=== PATIENT | female | born 1940 | race Hispanic/Latino ===

== ENCOUNTER 2016-10-30 21:49 | Emergency (ER) | payer MEDICARE ==
[2016-10-31 01:26] VITALS: BP 152/97; PULSE 76; RESP 18; TEMP 97.8; O2SAT 98; BMI 33.3
--- NOTE | 2016-10-31 01:52 | ED PDOC ---
Arrival/HPI - General Chief Complaint: ENT Problem Time Seen by Provider: 10/31/16 01:40 Historian: Patient - History of Present Illness Narrative History of Present Illness (Text): 10/31/16 01:52 Bhumi Rivas is a 75 year old female, with a history of hypertension, anemia , arthritis, and CAD with stents, presents to the emergency department complaining of swelling and pain to nose. Patient rolled out of bed at sleep and landed on her nose. Reports that symptoms are improving and currently reports of mild headache. Denies fever, chills, dizziness, weakness/numbness to extremity or any other complaints at this time. Time/Duration: Prior to Arrival Symptom Onset: Sudden Symptom Course: Unchanged Severity Level: Mild Activities at Onset: Sleeping Context: Home Past Medical History - Provider Review Nursing Documentation Reviewed: Yes - Infectious Disease Hx of Infectious Diseases: None - Tetanus Immunization Tetanus Immunization: Unknown - Reproductive Menopause: Yes - Cardiac Hx Hypertension: Yes Hx Pacemaker: No Other/Comment: 1 stent 20yrs ago - Pulmonary Hx Emphysema: Yes Other/Comment: smoker - Neurological Hx Neurological Disorder: No Hx Dementia: (forgetful) Hx Paralysis: No - HEENT Hx Cataracts: Yes - Renal Hx Renal Disorder: No - Endocrine/Metabolic Hx Endocrine Disorders: No - Hematological/Oncological Hx Anemia: Yes Hx Blood Transfusions: No Hx Blood Transfusion Reaction: No - Integumentary Hx Dermatological Disorder: No - Musculoskeletal/Rheumatological Hx Arthritis: Yes Hx Back Pain: Yes - Gastrointestinal Hx Gastrointestinal Disorders: Yes (COLITIS,GASTROENTERITIS) Hx Colitis: Yes - Genitourinary/Gynecological Hx Genitourinary Disorders: No Hx Urinary Tract Infection: Yes - Psychiatric Hx Psychophysiologic Disorder: No Hx Emotional Abuse: No Hx Physical Abuse: No Hx Substance Use: No - Past Surgical History Past Surgical History: No Previous - Surgical History Hx Coronary Stent: Yes (20yrs x1) Other/Comment: COLON RESECTION 1 foot - Anesthesia Hx Anesthesia: Yes Hx Anesthesia Reactions: No Hx Malignant Hyperthermia: No - Suicidal Assessment Feels Threatened In Home Enviroment: No Family/Social History - Physician Review Nursing Documentation Reviewed: Yes Family/Social History: No Known Family HX Smoking Status: Former Smoker Hx Alcohol Use: No Hx Substance Use: No Hx Substance Use Treatment: No Allergies/Home Meds Allergies/Adverse Reactions: Allergies No Known Allergies Allergy (Verified 10/31/16 01:20) Home Medications: Home Meds Medication Instructions Recorded Confirmed Atorvastatin Calcium [Lipitor] 20 mg PO DAILY 03/11/13 02/15/15 Carvedilol [Coreg] 3.125 mg PO BID 02/15/15 02/15/15 Furosemide [Lasix] 20 mg PO DAILY 02/15/15 02/15/15 Zolpidem Tartrate [Ambien] 5 mg PO HS PRN 02/15/15 02/15/15 Review of Systems - Physician Review All systems were reviewed & negative as marked: Yes - Review of Systems Constitutional: Normal. absent: Fatigue, Fevers ENT: Other (nose swelling and pain ) Respiratory: Normal. absent: SOB, Cough Cardiovascular: Normal. absent: Chest Pain Gastrointestinal: Normal. absent: Abdominal Pain, Diarrhea, Nausea, Vomiting Neurological: Headache. absent: Dizziness Psychiatric: Normal Physical Exam Vital Signs Reviewed: Yes Vital Signs Temp Pulse Resp BP Pulse Ox 10/31/16 01:25 97.8 F 76 18 152/97 H 98 Temperature: Afebrile Blood Pressure: Normal Pulse: Regular Respiratory Rate: Normal Appearance: Positive for: Well-Appearing, Non-Toxic, Comfortable Pain Distress: None Mental Status: Positive for: Alert and Oriented X 3 - Systems Exam Head: Present: Normocephalic Pupils: Present: PERRL Extroacular Muscles: Present: EOMI Conjunctiva: Present: Normal Mouth: Present: Moist Mucous Membranes Nose (External): Present: Other (superficial ecchymotic swelling to nasal bridge ). No: Abrasion, Laceration Nose (Internal): Present: Normal Inspection. No: No Active Bleeding, Septal Deviation, Septal Hematoma Respiratory/Chest: Present: Clear to Auscultation, Good Air Exchange. No: Respiratory Distress, Accessory Muscle Use Cardiovascular: Present: Regular Rate and Rhythm, Normal S1, S2. No: Murmurs Neurological: Present: GCS=15, CN II-XII Intact, Speech Normal Skin: Present: Warm, Dry, Normal Color. No: Rashes Psychiatric: Present: Alert, Oriented x 3, Normal Insight, Normal Concentration Medical Decision Making ED Course and Treatment: 10/31/16 02:13 Impression: A 75 year old female who presents to the emergency department complaining of swelling and pain to nose. Plan: -- X-ray -- Reassess and disposition Progress Notes: 10/31/16 05:28 X-ray reviewed by me, negative for any acute fracture. Patient states she is feeling much better and wants to be discharge home. Patient is stable for discharge. Advised to present back to emergency department for worsening symptoms. Advised to follow up with PMD within few days. - Lab Interpretations I have reviewed the lab results: Yes - RAD Interpretation Radiology Orders: 10/31/16 01:49 NASAL BONES [RAD] Stat Variety Performer: ED Physician - EKG Interpretation Interpreted by ED Physician: Yes Type: 12 lead EKG - Scribe Statement The provider has reviewed the documentation as recorded by the Scribe Urvashi Evans Provider Attestation: All medical record entries made by the Stefanoibe were at my direction and personally dictated by me. I have reviewed the chart and agree that the record accurately reflects my personal performance of the history, physical exam, medical decision making, and the department course for this patient. I have also personally directed, reviewed, and agree with the discharge instructions and disposition. Disposition/Present on Arrival - Present on Arrival Any Indicators Present on Arrival: No History of DVT/PE: No History of Uncontrolled Diabetes: No Urinary Catheter: No History of Decub. Ulcer: No History Surgical Site Infection Following: None - Disposition Have Diagnosis and Disposition been Completed?: Yes Diagnosis: Nasal contusion Disposition: HOME/ ROUTINE Disposition Time: 05:18 Patient Plan: Discharge Patient Problems: Current Active Problems Problem Status Diagnosed Nasal contusion Acute Condition: GOOD Discharge Instructions (ExitCare): Contusion in Adults (ED), Nasal Contusion ( ED) Additional Instructions: follow up with your doctor this week
--- NOTE | 2016-10-31 13:34 | RAD ---
PROCEDURE: Nasal bones HISTORY: injury COMPARISON: None TECHNIQUE: Standard protocol for this study/examination. FINDINGS: No evidence of displaced fracture or soft tissue abnormality. IMPRESSION: No acute findings related to/accounting for the clinical presentation.
== END 2016-10-31 05:20 | disposition home or self-care (01) ==
LOC: ED 21:49
DX: S00.33XA Contusion of nose, initial encounter (principal); W06.XXXA Fall from bed, initial encounter; Y93.84 Activity, sleeping; Y92.009 Unspecified place in unspecified non-institutional (private) residence as the place of occurrence of the external cause; I10 Essential (primary) hypertension; Z87.891 Personal history of nicotine dependence

== ENCOUNTER 2018-05-31 22:08 | Observation (INO) | payer MEDICARE, OTHER ==
[2018-05-31 22:17] VITALS: BMI 31.6
[2018-05-31 23:05] LABS: GRAN # 2.04 (1.4-6.5); GRAN % 52.4 % (50.0-68.0); HEMOGLOBIN 10.9 g/dL (12.0-16.0); LYMPH # 1.6 (1.2-3.4); LYMPH % 41.9 % (22.0-35.0); MEAN CELL VOLUME 99.2 fl (80.0-105.0); MEAN CORPUSCULAR HEMOGLOBIN 30.4 pg (25.0-35.0); MEAN CORPUSCULAR HGB CONC 30.7 g/dl (31.0-37.0); MEAN PLATELET VOLUME 11.6 fl (7.0-11.0); MONO # 0.2 (0.1-0.6); MONO % 5.7 % (1.0-6.0); RBC 3.58 10^6/uL (3.5-6.1); RED CELL DISTRIBUTION WIDTH 13.8 % (11.5-14.5); WHITE BLOOD COUNT 3.9 10^3/ul (4.5-11.0)
[2018-05-31 23:34] LABS: INR 1.71; PARTIAL THROMBOPLASTIN TIME 32.7 Seconds (25.1-36.5); PROTHROMBIN TIME 19.7 SECONDS (9.4-12.5)
[2018-05-31 23:35] LABS: ALB/GLOB RATIO 1.1 (1.1-1.8); ALBUMIN 4.2 g/dL (3.0-4.8); ALT/SGPT 27 U/L (7-56); AST/SGOT 40 U/L (14-36); BLOOD UREA NITROGEN 27 mg/dL (7-21); GFR NON-AFRICAN AMERICAN 43
[2018-05-31 23:47] LABS: B-TYPE NATRIURETIC PEPTIDE 663 pg/mL (0-450); TROPONIN I < 0.01 ng/mL
[2018-06-01 00:41] LABS: URINE BILIRUBIN NEGATIVE (NEGATIVE); URINE BLOOD NEGATIVE (NEGATIVE); URINE GLUCOSE (UA) NEGATIVE (NEGATIVE); URINE LEUKOCYTE ESTERASE MODERATE Leu/uL (NEGATIVE); URINE PROTEIN TRACE mg/dL (<30 mg/dL); URINE UROBILINOGEN 0.2 E.U./dL (<1 E.U./dL)
[2018-06-01 00:53] LABS: URINE APPEARANCE SL CLOUDY (CLEAR); URINE COLOR YELLOW (YELLOW)
[2018-06-01 01:09] LABS: URINE RBC 0 - 2 /hpf (0-2)
[2018-06-01 01:11] LABS: URINE BACTERIA MANY (NEG)
[2018-06-01] MEDS ORDERED: cefTRIAXone 1 gm 1 GM/100 ML BAG IVPB STA (01:11)
--- NOTE | 2018-06-01 01:20 | ED PDOC ---
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 States that she had recent cardiac cath on Sunday which was "good," she was told she had some minor plaque in 1 artery otherwise all the others were "good." She states that the pain started at 9pm while watching TV, lasted for nearly an hour, reports taking nitroglycerin with no immediate improvement, however upon arrival to the ER her pain has significantly improved. Reports no pain now, adds that she took her daily dose of baby ASA. Otherwise: (-) radiation to the back, (-) diaphoresis, (-) dyspnea, (-) pleuritic component, (-) ripping or tearing quality, (-) positional component, (-) exertional component, (-) dizziness, (-) syncope, (-) nausea, (-) vomiting, (-) abdominal pain, (-) calf swelling/pain, (-) neuro defi cits, (-) recent travel/surgery/hospitalization. PMD / cardio / pulm all in [place] <Candida Hartley PA-C - Last Filed: 06/01/18 01:49> <Gail Fish - Last Filed: 06/02/18 13:42> - General Chief Complaint: Chest Pain Time Seen by Provider: 05/31/18 22:32 Past Medical History - Infectious Disease Hx of Infectious Diseases: None - Tetanus Immunization Tetanus Immunization: Unknown - Cardiac Hx Hypertension: Yes Hx Pacemaker: No Other/Comment: 1 stent 20yrs ago - Pulmonary Hx Chronic Obstructive Pulmonary Disease (COPD): Yes Hx Emphysema: Yes - Neurological Hx Neurological Disorder: No Hx Dementia: (forgetful) Hx Paralysis: No - HEENT Hx Cataracts: Yes - Renal Hx Renal Disorder: No - Endocrine/Metabolic Hx Endocrine Disorders: No - Hematological/Oncological Hx Anemia: Yes Hx Blood Transfusions: No Hx Blood Transfusion Reaction: No - Integumentary Hx Dermatological Disorder: No - Musculoskeletal/Rheumatological Hx Arthritis: Yes Hx Back Pain: Yes - Gastrointestinal Hx Gastrointestinal Disorders: Yes (COLITIS,GASTROENTERITIS) Hx Colitis: Yes - Genitourinary/Gynecological Hx Genitourinary Disorders: No Hx Urinary Tract Infection: Yes - Psychiatric Hx Psychophysiologic Disorder: No Hx Emotional Abuse: No Hx Physical Abuse: No Hx Substance Use: No - Past Surgical History Past Surgical History: No Previous - Surgical History Hx Coronary Stent: Yes (20yrs x1) Other/Comment: COLON RESECTION 1 foot - Anesthesia Hx Anesthesia: Yes Hx Anesthesia Reactions: No Hx Malignant Hyperthermia: No - Suicidal Assessment Feels Threatened In Home Enviroment: No <Candida Hartley PA-C - Last Filed: 06/01/18 01:49> Family/Social History Family/Social History: Unknown Family HX Smoking Status: Former Smoker Hx Alcohol Use: Yes Frequency of alcohol use: Socially Hx Substance Use: No Hx Substance Use Treatment: No <Candida Hartley PA-C - Last Filed: 06/01/18 01:49> Allergies/Home Meds <Candida Hartley PA-C - Last Filed: 06/01/18 01:49> <Gail Fish - Last Filed: 06/02/18 13:42> Allergies/Adverse Reactions: Allergies No Known Allergies Allergy (Verified 05/31/18 22:17) Home Medications: Home Meds Medication Instructions Recorded Confirmed RX: Atorvastatin Calcium [Lipitor] 20 mg PO DAILY 03/11/13 06/01/18 RX: Carvedilol [Coreg] 6.25 mg PO BID 02/15/15 06/02/18 RX: Furosemide [Lasix] 20 mg PO DAILY 02/15/15 06/01/18 RX: Albuterol Sulfate [Ventolin 1 puff IH PRN PRN MDD 5 06/01/18 06/01/18 Hfa] RX: Glycopyrrolate/Formoterol Fum 1 puff IH BID 06/01/18 06/01/18 [Bevespi Aerosphere Inhaler] RX: Omeprazole Magnesium [Prilosec 20 mg PO BID 06/01/18 06/01/18 Otc] RX: Ranolazine [Ranexa] 500 mg PO DAILY 06/01/18 06/01/18 Review of Systems - Review of Systems Constitutional: absent: Fatigue, Fevers Respiratory: absent: SOB, Cough, Sputum Cardiovascular: Chest Pain. absent: Palpitations Gastrointestinal: absent: Abdominal Pain, Diarrhea, Vomiting Genitourinary Female: absent: Dysuria, Frequency, Hematuria Musculoskeletal: absent: Arthralgias, Back Pain, Neck Pain Skin: absent: Rash, Pruritis, Skin Lesions Neurological: absent: Headache, Dizziness <Candida Hartley PA-C - Last Filed: 06/01/18 01:49> Physical Exam Vital Signs Temp Pulse Resp BP Pulse Ox 06/01/18 00:35 71 18 154/68 H 98 05/31/18 22:53 66 18 137/81 96 05/31/18 22:21 97.8 F 65 20 143/67 96 Temperature: Afebrile Blood Pressure: Normal Pulse: Regular Respiratory Rate: Normal Appearance: Positive for: Well-Appearing, Non-Toxic, Comfortable (patient is smiling and in good spirits) Pain Distress: None Mental Status: Positive for: Alert and Oriented X 3 - Systems Exam Head: Present: Atraumatic, Normocephalic Pupils: Present: PERRL Extroacular Muscles: Present: EOMI Conjunctiva: Present: Normal Mouth: Present: Moist Mucous Membranes Neck: Present: Normal Range of Motion Respiratory/Chest: Present: Clear to Auscultation, Good Air Exchange. No: Respiratory Distress, Accessory Muscle Use Cardiovascular: Present: Regular Rate and Rhythm, Normal S1, S2. No: Murmurs Abdomen: No: Tenderness, Distention, Peritoneal Signs Back: Present: Normal Inspection Upper Extremity: Present: Normal Inspection. No: Cyanosis, Edema Lower Extremity: Present: Normal Inspection. No: Edema Neurological: Present: GCS=15, CN II-XII Intact, Speech Normal, Motor Func Grossly Intact, Normal Sensory Function Skin: Present: Warm, Dry, Normal Color. No: Rashes Psychiatric: Present: Alert, Oriented x 3, Normal Insight, Normal Concentration <Candida Hartley PA-C - Last Filed: 06/01/18 01:49> Vital Signs Temp Pulse Resp BP Pulse Ox 06/01/18 03:07 97.9 F 63 18 152/70 H 99 06/01/18 02:02 63 18 159/72 H 96 06/01/18 00:35 71 18 154/68 H 98 05/31/18 22:53 66 18 137/81 96 05/31/18 22:21 97.8 F 65 20 143/67 96 <Gail Fish - Last Filed: 06/02/18 13:42> Medical Decision Making ED Course and Treatment: 06/01/18 01:22 Plan : - cuff setter overlock - labs - IV - CXR - EKG - Coags Labs reviewed : trop (-), BNP 600s, d-dimer (-), UA + UTI. CXR : NAD, as read by PA EKG : SR at 72 bpm with PACs, LAD, otherwise no acute ST changes. Rocephin 1 g IV for UTI ordered. On re-evaluation, patient reports improvement of symptoms, denies any CP or SOB. On exam, patient remains AAOx3, in no acute distress. Diagnostic results d/w the patient in great detail. Diagnosis of chest pain, r/o ACS, UTI d/w the patient. Based on history, exam and diagnostic results, plan will be for observation to remote tele. Case d/w [facility] and with Dr. Cazares, agree with plan for remote tele obs for further observation, and repeat troponin. Patient states she fully agrees with and understands discharge instructions. States that she agrees with the plan and disposition. Verbalized and repeated discharge instructions and plan. I have given the patient opportunity to ask any additional questions. - Lab Interpretations Lab Results: 05/31/18 22:04 05/31/18 23:15 Lab Results 06/01/18 00:32: Urine Color Yellow, Urine Appearance Sl cloudy, Urine pH 6.0, Ur Specific [place] 1.025, Urine Protein Trace H, Urine Glucose (UA) Negative, Urine Ketones Trace H, Urine Blood Negative, Urine Nitrate Positive H, Urine Bilirubin Negative, Urine Urobilinogen 0.2, Ur Leukocyte Esterase Moderate H, Urine RBC 0 - 2, Urine WBC 10 - 15, Ur Epithelial Cells 1 - 3, Urine Bacteria Many 05/31/18 23:15: D-Dimer, Quantitative < 200 05/31/18 23:15: Sodium 139, Potassium 4.1, Chloride 102, Carbon Dioxide 29, An ion Gap 12, BUN 27 H, Creatinine 1.2, Est GFR ( Amer) 52, Est GFR (Non-Af Amer) 43, Random Glucose 111 H, Calcium 9.0, Magnesium 1.5 L, Total Bilirubin 0.5, AST 40 H D, ALT 27, Alkaline Phosphatase 94, Lactate Dehydrogenase 513, Total Creatine Kinase 49, Troponin I < 0.01, NT-Pro-B Natriuret Pep 663 H, Total Protein 7.8, Albumin 4.2, Globulin 3.6, Albumin/Globulin Ratio 1.1 05/31/18 22:04: PT 19.7 H, INR 1.71, APTT 32.7 05/31/18 22:04: WBC 3.9 L, RBC 3.58, Hgb 10.9 L, Hct 35.5 L, MCV 99.2, MCH 30.4, MCHC 30.7 L, RDW 13.8, Plt Count 151, MPV 11.6 H, Gran % 52.4, Lymph % (Auto) 41.9 H, [place] % (Auto) 5.7, Eos % (Auto) 0.0 L, Baso % (Auto) 0.0, Gran # 2.04, Lymph # (Auto) 1.6, [place] # (Auto) 0.2, Eos # (Auto) 0.0, Baso # (Auto) 0.00 - RAD Interpretation Radiology Orders: 05/31/18 22:40 CHEST PORTABLE [RAD] Stat - Medication Orders Current Medication Orders: Ceftriaxone Sodium (Rocephin 1 Gram Ivpb) 1 gm in 100 mls @ 200 mls/hr IVPB STAT STA; Protocol Stop: 06/01/18 01:40 <Candida Hartley PA-C - Last Filed: 06/01/18 01:49> - Lab Interpretations Microbiology Results: Microbiology Results 06/01/18 00:32 Urine,Clean Catch Urine Culture - Preliminary Gram Negative Alfredo Lab Results: 05/31/18 22:04 05/31/18 23:15 Lab Results 06/01/18 00:32: Urine Color Yellow, Urine Appearance Sl cloudy, Urine pH 6.0, Ur Specific [place] 1.025, Urine Protein Trace H, Urine Glucose (UA) Negative, Urine Ketones Trace H, Urine Blood Negative, Urine Nitrate Positive H, Urine Bilirubin Negative, Urine Urobilinogen 0.2, Ur Leukocyte Esterase Moderate H, Urine RBC 0 - 2, Urine WBC 10 - 15, Ur Epithelial Cells 1 - 3, Urine Bacteria Many 05/31/18 23:15: D-Dimer, Quantitative < 200 05/31/18 23:15: Sodium 139, Potassium 4.1, Chloride 102, Carbon Dioxide 29, Anion Gap 12, BUN 27 H, Creatinine 1.2, Est GFR ( Amer) 52, Est GFR (Non- Af Amer) 43, Random Glucose 111 H, Calcium 9.0, Magnesium 1.5 L, Total Bilirubin 0.5, AST 40 H D, ALT 27, Alkaline Phosphatase 94, Lactate Dehydrogenase 513, Total Creatine Kinase 49, Troponin I < 0.01, NT-Pro-B Natriuret Pep 663 H, Total Protein 7.8, Albumin 4.2, Globulin 3.6, Albumin/Globulin Ratio 1.1 05/31/18 22:04: PT 19.7 H, INR 1.71, APTT 32.7 05/31/18 22:04: WBC 3.9 L, RBC 3.58, Hgb 10.9 L, Hct 35.5 L, MCV 99.2, MCH 30.4, MCHC 30.7 L, RDW 13.8, Plt Count 151, MPV 11.6 H, Gran % 52.4, Lymph % (Auto) 41.9 H, [place] % (Auto) 5.7, Eos % (Auto) 0.0 L, Baso % (Auto) 0.0, Gran # 2.04, Lymph # (Auto) 1.6, [place] # (Auto) 0.2, Eos # (Auto) 0.0, Baso # (Auto) 0.00 - RAD Interpretation Radiology Orders: 05/31/18 22:40 CHEST PORTABLE [RAD] Stat - Medication Orders Current Medication Orders: Albuterol/Ipratropium (Duoneb 3 Mg/0.5 Mg (3 Ml) Ud) 3 ml IH Q6H PRN PRN Reason: Shortness of Breath Apixaban (Eliquis) 5 mg PO BID [facility]; Protocol Last Admin: 06/02/18 09:42 Dose: 5 mg Aspirin (Aspirin Chewable) 81 mg PO DAILY [facility] Last Admin: 06/02/18 09:41 Dose: 81 mg Atorvastatin Calcium (Lipitor) 20 mg PO HS [facility] Last Admin: 06/01/18 21:49 Dose: 20 mg Carvedilol (Coreg) 6.25 mg PO BID [facility] Last Admin: 10/21/18 09:41 Dose: 6.25 mg MAR Pulse and Blood Pressure Document 06/02/18 09:41 RT (Rec: 06/02/18 09:42 RT [id number]) Pulse Pulse Rate (60-90) 77 Blood Pressure Blood Pressure (100/60-150/90) 118/77 Famotidine (Pepcid) 20 mg PO 1000,2200 [facility] Last Admin: 06/02/18 09:41 Dose: 20 mg Furosemide (Lasix) 20 mg PO DAILY [facility] Last Admin: 06/02/18 09:39 Dose: 20 mg MAR Blood Pressure Document 06/02/18 09:39 RT (Rec: 06/02/18 09:40 RT [id number]) Blood Pressure Blood Pressure (100/60-150/90) 118/77 Ceftriaxone Sodium (Rocephin 1 Gram Ivpb) 1 gm in 100 mls @ 100 mls/hr IVPB DAILY [facility]; Protocol Last Admin: 06/02/18 09:39 Dose: 100 mls/hr eMAR Start Stop Document 06/02/18 09:39 RT (Rec: 06/02/18 09:39 RT [id number]) Intravenous Solution Start Date 06/02/18 Start Time 09:39 End Date 06/02/18 End time 10:40 Total Infusion Time 61 Losartan Potassium (Cozaar) 25 mg PO DAILY [facility] Last Admin: 06/02/18 09:41 Dose: 25 mg MAR Pulse and Blood Pressure Document 06/02/18 09:41 RT (Rec: 06/02/18 09:41 RT [id number]) Pulse Pulse Rate (60-90) 76 Blood Pressure Blood Pressure (100/60-150/90) 118/77 Ranolazine [Ranexa] (500 Mg (Home Med)) 500 mg PO DAILY [facility] Last Admin: 06/02/18 09:42 Dose: Not Given Non-Admin Reason: not id'd Discontinued Medications Apixaban (Eliquis) 5 mg PO DAILY [facility]; Protocol Ceftriaxone Sodium (Rocephin 1 Gram Ivpb) 1 gm in 100 mls @ 200 mls/hr IVPB STAT STA; Protocol Stop: 06/01/18 01:40 Last Admin: 06/01/18 02:15 Dose: 200 mls/hr eMAR Start Stop Document 06/01/18 02:15 RG (Rec: 06/01/18 02:52 RG [id number]) Intravenous Solution Start Date 06/01/18 Start Time 02:15 Magnesium Sulfate/Dextrose (Magnesium Sulfate 1 Gm/100 Ml D5w) 1 gm in 100 mls @ 100 mls/hr IVPB ONCE ONE Stop: 06/01/18 02:57 Last Admin: 06/01/18 02:52 Dose: 100 mls/hr eMAR Start Stop Document 06/01/18 02:52 RG (Rec: 06/01/18 02:52 RG [id number]) Intravenous Solution Start Date 06/01/18 Start Time 02:52 <Gail Fish - Last Filed: 06/02/18 13:42> - PA / LEGISLATIVE ASSISTANT / Resident Statement ERVIN has reviewed & agrees with the documentation as recorded. <Candida Hartley PA-C - Last Filed: 06/01/18 01:49> - PA / LEGISLATIVE ASSISTANT / Resident Statement ERVIN has reviewed & agrees with the documentation as recorded. <Gail Fish - Last Filed: 06/02/18 13:42> Disposition/Present on Arrival - Present on Arrival Any Indicators Present on Arrival: No History of DVT/PE: No History of Uncontrolled Diabetes: No Urinary Catheter: No History of Decub. Ulcer: No History Surgical Site Infection Following: None - Disposition Have Diagnosis and Disposition been Completed?: Yes Disposition Time: 01:30 Patient Plan: Observation (to remote tele) <Candida Hartley PA-C - Last Filed: 06/01/18 01:49> <Gail Fish - Last Filed: 06/02/18 13:42> - Disposition Diagnosis: Chest pain, UTI (urinary tract infection) Disposition: HOSPITALIZED Patient Problems: Current Active Problems Problem Status Onset Chest pain Acute UTI (urinary tract infection) Acute Condition: STABLE
--- NOTE | 2018-06-01 01:25 | CP.PCM.HP ---
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 Patient reports she was resting comfortably and started to experience 8/10 chest pain on her right side under her breast. She reported the pain radiated to her left side but had no radiation down her LUE or up her jaw. Patient reports she took Nitro which did not help and thus decided to call EMS. Patient had a similar episode of such pain 22 years ago when she was brought in and had a cath and stent placed which is why she came to the ER. She stated she ate dinner around 5pm on the night of admission and began to experience chest pain a couple hours after. She also experienced some associated nausea with no emesis and felt like going to the bathroom. Patient recently had an angio on SundayMay 28 which was unremarkable. She also had an Echo recently however she does not recall the results. Patient reports she can only walk 1/2 block due to arthritis and that she ambulates with a cane. She lives on the second floor of her building and is usually short of breath after climbing up two flights of stairs. She sleeps with 1 pillow at night and admits to some mild orthopnea. PMHx: CAD s/p 1 stent 20 years ago, DVT LLE and b/l PE on eliquis 5mg bid, HTN, HLD, emphysema, anemia, diverticulitis, arthritis PSurgHx: colectomy, R shoulder benign tumor removal, tonsillectomy as a child Nuclear Stress test 2016: LV mildly dilated; EF 68%; unremarkable study Meds: pls see chart ALL: NKDA SocHx: prior tobacco use quit 22 years ago- used to smoke 2.5packs for 40 years; ocassionally drinks wine; denies drug use FamHx: mother 44yo 2/2 brain aneurysm; father 66yo [place]; grandmother rectal CA; uncle stomach ca PMD: Dr. Dasilva Pipe Buffer: Dr. Dasilva Pharmacy: [facility] Insurance: [employer] ROS: admits: R sided chest pain, dyspnea at rest and on exertion, nausea, arthritic pain in her legs b/l, chronic swelling in her b/l LE [much improved today than baseline] denies: fever, chills, headache, dizziness, palpitations, cough, abd pain, vomiting, bowel/bladder complaints Present on Admission - Present on Admission Any Indicators Present on Admission: Yes History of DVT/PE: Yes History of Uncontrolled Diabetes: No Urinary Catheter: No Decubitus Ulcer Present: No Review of Systems - Review of Systems All systems: reviewed and no additional remarkable complaints except Review of Systems: as per HPI Past Patient History - Infectious Disease Hx of Infectious Diseases: None - Tetanus Immunizations Tetanus Immunization: Unknown - Past Social History Smoking Status: Former Smoker - CARDIAC Hx Hypertension: Yes Hx Pacemaker: No Other/Comment: 1 stent 20yrs ago - PULMONARY Hx Chronic Obstructive Pulmonary Disease (COPD): Yes Hx Emphysema: Yes - NEUROLOGICAL Hx Neurological Disorder: No Hx Dementia: (forgetful) Hx Paralysis: No - HEENT Hx Cataracts: Yes - RENAL Hx Chronic Kidney Disease: No - ENDOCRINE/METABOLIC Hx Endocrine Disorders: No - HEMATOLOGICAL/ONCOLOGICAL Hx Anemia: Yes Hx Blood Transfusions: No Hx Blood Transfusion Reaction: No - INTEGUMENTARY Hx Dermatological Problems: No - MUSCULOSKELETAL/RHEUMATOLOGICAL Hx Arthritis: Yes Hx Back Pain: Yes - GASTROINTESTINAL Hx Gastrointestinal Disorders: Yes (COLITIS,GASTROENTERITIS) Hx Colitis: Yes - GENITOURINARY/GYNECOLOGICAL Hx Genitourinary Disorders: No Hx Urinary Tract Infection: Yes - PSYCHIATRIC Hx Psychophysiologic Disorder: No Hx Emotional Abuse: No Hx Physical Abuse: No Hx Substance Use: No - SURGICAL HISTORY Hx Coronary Stent: Yes (20yrs x1) Other/Comment: COLON RESECTION 1 foot - ANESTHESIA Hx Anesthesia: Yes Hx Anesthesia Reactions: No Hx Malignant Hyperthermia: No Meds Allergies/Adverse Reactions: Allergies Allergy/AdvReac Type Severity Reaction Status Date / Time No Known Allergies Allergy Verified 05/31/18 22:17 Physical Exam - Constitutional Appears: Non-toxic, No Acute Distress - Head Exam Head Exam: ATRAUMATIC, NORMAL INSPECTION, NORMOCEPHALIC - Eye Exam Eye Exam: EOMI, Normal appearance, PERRL. absent: Conjunctival injection, Scleral icterus Pupil Exam: NORMAL ACCOMODATION - ENT Exam ENT Exam: Mucous Membranes Moist - Neck Exam Neck exam: Positive for: Normal Inspection. Negative for: Lymphadenopathy - Respiratory Exam Respiratory Exam: Clear to Auscultation Bilateral, NORMAL BREATHING PATTERN. absent: Accessory Muscle Use, Rales, Rhonchi, Wheezes, Respiratory Distress - Cardiovascular Exam Cardiovascular Exam: +S1, +S2. absent: Systolic Murmur - GI/Abdominal Exam GI & Abdominal Exam: Normal Bowel Sounds, Soft. absent: Distended, Firm, Guarding, Rigid, Tenderness - Rectal Exam Rectal Exam: Deferred - Extremities Exam Extremities exam: Positive for: normal capillary refill, pedal edema (nonpitting b/l ankles), pedal pulses present - Neurological Exam Neurological exam: Alert, CN II-XII Intact, Oriented x3 - Psychiatric Exam Psychiatric exam: Normal Affect, Normal Mood - Skin Skin Exam: Dry, Intact, Normal Color, Warm Results - Vital Signs Recent Vital Signs: Last Vital Signs Temp 97.8 F 05/31/18 22:21 Pulse 71 06/01/18 00:35 Resp 18 06/01/18 00:35 BP 154/68 H 06/01/18 00:35 Pulse Ox 98 06/01/18 00:35 - Labs Result Diagrams: 05/31/18 22:04 05/31/18 23:15 Labs: Laboratory Results - last 24 hr 05/31/18 05/31/18 05/31/18 22:04 22:04 23:15 WBC 3.9 L RBC 3.58 Hgb 10.9 L Hct 35.5 L MCV 99.2 MCH 30.4 MCHC 30.7 L RDW 13.8 Plt Count 151 MPV 11.6 H Gran % 52.4 Lymph % (Auto) 41.9 H [place] % (Auto) 5.7 Eos % (Auto) 0.0 L Baso % (Auto) 0.0 Gran # 2.04 Lymph # (Auto) 1.6 [place] # (Auto) 0.2 Eos # (Auto) 0.0 Baso # (Auto) 0.00 PT 19.7 H INR 1.71 APTT 32.7 D-Dimer, Quantitative Sodium 139 Potassium 4.1 Chloride 102 Carbon Dioxide 29 Anion Gap 12 BUN 27 H Creatinine 1.2 Est GFR ( Amer) 52 Est GFR (Non-Af Amer) 43 Random Glucose 111 H Calcium 9.0 Magnesium 1.5 L Total Bilirubin 0.5 AST 40 H D ALT 27 Alkaline Phosphatase 94 Lactate Dehydrogenase 513 Total Creatine Kinase 49 Troponin I < 0.01 NT-Pro-B Natriuret Pep 663 H Total Protein 7.8 Albumin 4.2 Globulin 3.6 Albumin/Globulin Ratio 1.1 Urine Color Urine Appearance Urine pH Ur Specific [place] Urine Protein Urine Glucose (UA) Urine Ketones Urine Blood Urine Nitrate Urine Bilirubin Urine Urobilinogen Ur Leukocyte Esterase Urine RBC Urine WBC Ur Epithelial Cells Urine Bacteria 05/31/18 06/01/18 23:15 00:32 WBC RBC Hgb Hct MCV MCH MCHC RDW Plt Count MPV Gran % Lymph % (Auto) [place] % (Auto) Eos % (Auto) Baso % (Auto) Gran # Lymph # (Auto) [place] # (Auto) Eos # (Auto) Baso # (Auto) PT INR APTT D-Dimer, Quantitative < 200 Sodium Potassium Chloride Carbon Dioxide Anion Gap BUN Creatinine Est GFR ( Amer) Est GFR (Non-Af Amer) Random Glucose Calcium Magnesium Total Bilirubin AST ALT Alkaline Phosphatase Lactate Dehydrogenase Total Creatine Kinase Troponin I NT-Pro-B Natriuret Pep Total Protein Albumin Globulin Albumin/Globulin Ratio Urine Color Yellow Urine Appearance Sl cloudy Urine pH 6.0 Ur Specific [place] 1.025 Urine Protein Trace H Urine Glucose (UA) Negative Urine Ketones Trace H Urine Blood Negative Urine Nitrate Positive H Urine Bilirubin Negative Urine Urobilinogen 0.2 Ur Leukocyte Esterase Moderate H Urine RBC 0 - 2 Urine WBC 10 - 15 Ur Epithelial Cells 1 - 3 Urine Bacteria Many Assessment & Plan - Assessment and Plan (Free Text) Assessment: 77yo female PMHx CAD s/p 1 stent 22 years ago, DVT LLE and b/l PE on eliquis 5mg bid, HTN, HLD, emphysema, anemia, diverticulitis, arthritis presents to [facility] with complaints of right sided chest pain and associated SOB that started on night of admission. Patient admitted to remote TELE-Obs for further management Plan: Chest pain r/o ACS -troponin negative x 1 f/u troponin x 2 -EKG on admission had no ST elevations f/u EKG in AM -BNP 663 on admission -f/u Echo -f/u FLP, TSH, free T4, HgbA1c -ASA 81mg qd -continue home Lipitor 20mg po hs -continue home Coreg 6.25mg po bid -continue home Ranexa 500mg po qd -continue home Lasix 20mg po qd -Cardio Consult Dr. Bragg Hx of CAD s/p 1 stent 22 years ago -continue home medications Hx of DVT LLE and b/l PE -continue home Eliquis 5mg bid Hx of HTN -continue home Coreg and Losartan 25mg po qd Hx of HLD -continue home Lipitor Hx of Emphysema -no acute issues -Duoneb q6 prn Hx of anemia -no signs of acute bleed -f/u iron studies Hx of diverticulitis -no acute issues Hx of arthritis -no acute issues Diet: HHD with LONG TERM DVT ppx: continue home Eliquis 5mg bid GI ppx: Pepcid 20mg po bid Discussed with Dr. Debora Morales PGY3 <Keri Cazares - Last Filed: 06/01/18 03:01> Results - Vital Signs Recent Vital Signs: Last Vital Signs Temp 97.8 F 05/31/18 22:21 Pulse 63 06/01/18 02:02 Resp 18 06/01/18 02:02 BP 159/72 H 06/01/18 02:02 Pulse Ox 96 06/01/18 02:02 - Labs Result Diagrams: 05/31/18 22:04 05/31/18 23:15 Labs: Laboratory Results - last 24 hr 05/31/18 05/31/18 05/31/18 22:04 22:04 23:15 WBC 3.9 L RBC 3.58 Hgb 10.9 L Hct 35.5 L MCV 99.2 MCH 30.4 MCHC 30.7 L RDW 13.8 Plt Count 151 MPV 11.6 H Gran % 52.4 Lymph % (Auto) 41.9 H [place] % (Auto) 5.7 Eos % (Auto) 0.0 L Baso % (Auto) 0.0 Gran # 2.04 Lymph # (Auto) 1.6 [place] # (Auto) 0.2 Eos # (Auto) 0.0 Baso # (Auto) 0.00 PT 19.7 H INR 1.71 APTT 32.7 D-Dimer, Quantitative Sodium 139 Potassium 4.1 Chloride 102 Carbon Dioxide 29 Anion Gap 12 BUN 27 H Creatinine 1.2 Est GFR ( Amer) 52 Est GFR (Non-Af Amer) 43 Random Glucose 111 H Calcium 9.0 Magnesium 1.5 L Total Bilirubin 0.5 AST 40 H D ALT 27 Alkaline Phosphatase 94 Lactate Dehydrogenase 513 Total Creatine Kinase 49 Troponin I < 0.01 NT-Pro-B Natriuret Pep 663 H Total Protein 7.8 Albumin 4.2 Globulin 3.6 Albumin/Globulin Ratio 1.1 Urine Color Urine Appearance Urine pH Ur Specific [place] Urine Protein Urine Glucose (UA) Urine Ketones Urine Blood Urine Nitrate Urine Bilirubin Urine Urobilinogen Ur Leukocyte Esterase Urine RBC Urine WBC Ur Epithelial Cells Urine Bacteria 05/31/18 06/01/18 23:15 00:32 WBC RBC Hgb Hct MCV MCH MCHC RDW Plt Count MPV Gran % Lymph % (Auto) [place] % (Auto) Eos % (Auto) Baso % (Auto) Gran # Lymph # (Auto) [place] # (Auto) Eos # (Auto) Baso # (Auto) PT INR APTT D-Dimer, Quantitative < 200 Sodium Potassium Chloride Carbon Dioxide Anion Gap BUN Creatinine Est GFR ( Amer) Est GFR (Non-Af Amer) Random Glucose Calcium Magnesium Total Bilirubin AST ALT Alkaline Phosphatase Lactate Dehydrogenase Total Creatine Kinase Troponin I NT-Pro-B Natriuret Pep Total Protein Albumin Globulin Albumin/Globulin Ratio Urine Color Yellow Urine Appearance Sl cloudy Urine pH 6.0 Ur Specific [place] 1.025 Urine Protein Trace H Urine Glucose (UA) Negative Urine Ketones Trace H Urine Blood Negative Urine Nitrate Positive H Urine Bilirubin Negative Urine Urobilinogen 0.2 Ur Leukocyte Esterase Moderate H Urine RBC 0 - 2 Urine WBC 10 - 15 Ur Epithelial Cells 1 - 3 Urine Bacteria Many Attending/Attestation - Attestation I have personally seen and examined this patient.: Yes I have fully participated in the care of the patient.: Yes I have reviewed all pertinent clinical information: Yes Notes (Text): 06/01/18 03:00 Patient was seen when she was in the bed #4 in the ER. Medical record was reviewed. Agree with history , physical examination, assessment and plan.
[2018-06-01] MEDS ORDERED: Magnesium Sulfate 1 gm in D5W 1 GM/100 ML BAG IVPB ONE (01:58)
[2018-06-01] MEDS ORDERED: Albuterol-Ipratrop 3 mg / 0.5 (3 ml) UD IH PRN (02:29)
[2018-06-01 08:03] LABS: GRAN # 1.18 (1.4-6.5); GRAN % 38.8 % (50.0-68.0); HEMOGLOBIN 9.9 g/dL (12.0-16.0); LYMPH # 1.6 (1.2-3.4); LYMPH % 51.3 % (22.0-35.0); MEAN CELL VOLUME 98.2 fl (80.0-105.0); MEAN CORPUSCULAR HEMOGLOBIN 29.7 pg (25.0-35.0); MEAN CORPUSCULAR HGB CONC 30.3 g/dl (31.0-37.0); MONO # 0.3 (0.1-0.6); MONO % 9.9 % (1.0-6.0); RBC 3.33 10^6/uL (3.5-6.1); RED CELL DISTRIBUTION WIDTH 13.8 % (11.5-14.5)
[2018-06-01 08:10] LABS: FREE T4 1.33 ng/dL (0.78-2.19)
--- NOTE | 2018-06-01 08:21 | CP.PCM.CON ---
History of Present Illness - History of Present Illness History of Present Illness: Awake, alert, no distress, denies chest pain Reason for consultation: Cardiac evaluation of sharp chest pain right under the breast radiating to left side with mild shortness of breath. Brief history of present illness: A 77 year old female who came in to the ER due to right under the breast sharp chest pain, radiating to left side with mild shortness of breath.She also had nausea but no vomiting. Claimed to have shortness of breath climbing 2 flights of stairs. Walks with walker. History of coronary artery disease with stent 20 years ago, pulmonary embolism on Eliquis, Deep vein thrombosis (LLE), emphysema, COPD, UTI, anemia,diverticulitis, arthritis, hypertension, hyperlipidemia, colectomy, right shoulder tumor with removal,tonsillectomy, former smoker 2.5 packs for 40 years quit 22 years ago. Had recently had a cardiac catheterization at [facility] ([place]) patient stated that stent is patent. Echo was also done but results were not available. Follow[place] up with [place]. Bue[place] in [facility]. Seen and examined by me and Dr. Bragg Review of Systems - Review of Systems All systems: reviewed and no additional remarkable complaints except Review of Systems: as per HPI Past Patient History - Infectious Disease Hx of Infectious Diseases: None - Tetanus Immunizations Tetanus Immunization: Unknown - Past Social History Smoking Status: Former Smoker - CARDIAC Hx Hypertension: Yes Hx Pacemaker: No Other/Comment: 1 stent 20yrs ago - PULMONARY Hx Chronic Obstructive Pulmonary Disease (COPD): Yes Hx Emphysema: Yes - NEUROLOGICAL Hx Neurological Disorder: No Hx Dementia: (forgetful) - HEENT Hx Cataracts: Yes - RENAL Hx Chronic Kidney Disease: No - ENDOCRINE/METABOLIC Hx Endocrine Disorders: No - HEMATOLOGICAL/ONCOLOGICAL Hx Anemia: Yes - INTEGUMENTARY Hx Dermatological Problems: No - MUSCULOSKELETAL/RHEUMATOLOGICAL Hx Arthritis: Yes Hx Back Pain: Yes Hx Falls: No - GASTROINTESTINAL Hx Gastrointestinal Disorders: Yes (COLITIS,GASTROENTERITIS) - GENITOURINARY/GYNECOLOGICAL Hx Genitourinary Disorders: No Hx Urinary Tract Infection: Yes - PSYCHIATRIC Hx Psychophysiologic Disorder: No Hx Emotional Abuse: No Hx Physical Abuse: No Hx Substance Use: No - SURGICAL HISTORY Hx Coronary Stent: Yes (20yrs x1) Other/Comment: COLON RESECTION 1 foot - ANESTHESIA Hx Anesthesia: Yes Hx Anesthesia Reactions: No Hx Malignant Hyperthermia: No Meds Allergies/Adverse Reactions: Allergies Allergy/AdvReac Type Severity Reaction Status Date / Time No Known Allergies Allergy Verified 05/31/18 22:17 - Medications Medications: Current Medications Albuterol/Ipratropium (Duoneb 3 Mg/0.5 Mg (3 Ml) Ud) 3 ml IH Q6H PRN PRN Reason: Shortness of Breath Apixaban (Eliquis) 5 mg PO DAILY YASMINE; Protocol Aspirin (Aspirin Chewable) 81 mg PO DAILY YASMINE Atorvastatin Calcium (Lipitor) 20 mg PO HS YASMINE Carvedilol (Coreg) 6.25 mg PO BID YASMINE Famotidine (Pepcid) 20 mg PO 1000,2200 YASMINE Furosemide (Lasix) 20 mg PO DAILY YASMINE Ceftriaxone Sodium (Rocephin 1 Gram Ivpb) 1 gm in 100 mls @ 100 mls/hr IVPB DAILY YASMINE; Protocol Losartan Potassium (Cozaar) 25 mg PO DAILY YASMINE Non-Formulary Medication (Ranolazine [Ranexa]) 500 mg PO DAILY YASMINE Physical Exam - Constitutional Appears: Non-toxic, No Acute Distress - Eye Exam Eye Exam: Normal appearance Pupil Exam: NORMAL ACCOMODATION - ENT Exam ENT Exam: Mucous Membranes Moist - Respiratory Exam Respiratory Exam: Clear to Auscultation Bilateral, NORMAL BREATHING PATTERN - Cardiovascular Exam Cardiovascular Exam: REGULAR RHYTHM, +S1, +S2 - GI/Abdominal Exam GI & Abdominal Exam: Normal Bowel Sounds, Soft - Extremities Exam Extremities exam: Positive for: full ROM, normal capillary refill Additional comments: 1-2+ pedal edema - Neurological Exam Neurological exam: Alert, Oriented x3 - Psychiatric Exam Psychiatric exam: Normal Affect, Normal Mood - Skin Skin Exam: Dry, Normal Color, Warm Results - Vital Signs Recent Vital Signs: Last Vital Signs Temp 97.9 F 06/01/18 03:07 Pulse 64 06/01/18 04:00 Resp 18 06/01/18 04:00 BP 152/70 H 06/01/18 03:07 Pulse Ox 99 06/01/18 03:07 - Labs Result Diagrams: 06/01/18 07:00 06/01/18 07:00 Labs: Laboratory Results - last 24 hr 05/31/18 05/31/18 05/31/18 22:04 22:04 23:15 WBC 3.9 L RBC 3.58 Hgb 10.9 L Hct 35.5 L MCV 99.2 MCH 30.4 MCHC 30.7 L RDW 13.8 Plt Count 151 MPV 11.6 H Gran % 52.4 Lymph % (Auto) 41.9 H [place] % (Auto) 5.7 Eos % (Auto) 0.0 L Baso % (Auto) 0.0 Gran # 2.04 Lymph # (Auto) 1.6 [place] # (Auto) 0.2 Eos # (Auto) 0.0 Baso # (Auto) 0.00 PT 19.7 H INR 1.71 APTT 32.7 D-Dimer, Quantitative Sodium 139 Potassium 4.1 Chloride 102 Carbon Dioxide 29 Anion Gap 12 BUN 27 H Creatinine 1.2 Est GFR ( Amer) 52 Est GFR (Non-Af Amer) 43 Random Glucose 111 H Calcium 9.0 Magnesium 1.5 L Total Bilirubin 0.5 AST 40 H D ALT 27 Alkaline Phosphatase 94 Lactate Dehydrogenase 513 Total Creatine Kinase 49 Troponin I < 0.01 NT-Pro-B Natriuret Pep 663 H Total Protein 7.8 Albumin 4.2 Globulin 3.6 Albumin/Globulin Ratio 1.1 Triglycerides Cholesterol HDL Cholesterol Urine Color Urine Appearance Urine pH Ur Specific [place] Urine Protein Urine Glucose (UA) Urine Ketones Urine Blood Urine Nitrate Urine Bilirubin Urine Urobilinogen Ur Leukocyte Esterase Urine RBC Urine WBC Ur Epithelial Cells Urine Bacteria 05/31/18 06/01/18 06/01/18 23:15 00:32 07:00 WBC RBC Hgb Hct MCV MCH MCHC RDW Plt Count MPV Gran % Lymph % (Auto) [place] % (Auto) Eos % (Auto) Baso % (Auto) Gran # Lymph # (Auto) [place] # (Auto) Eos # (Auto) Baso # (Auto) PT INR APTT D-Dimer, Quantitative < 200 Sodium Potassium Chloride Carbon Dioxide Anion Gap BUN Creatinine Est GFR ( Amer) Est GFR (Non-Af Amer) Random Glucose Calcium Magnesium Total Bilirubin AST ALT Alkaline Phosphatase Lactate Dehydrogenase Total Creatine Kinase Troponin I NT-Pro-B Natriuret Pep Total Protein Albumin Globulin Albumin/Globulin Ratio Triglycerides 44 Cholesterol 146 HDL Cholesterol 39 Urine Color Yellow Urine Appearance Sl cloudy Urine pH 6.0 Ur Specific [place] 1.025 Urine Protein Trace H Urine Glucose (UA) Negative Urine Ketones Trace H Urine Blood Negative Urine Nitrate Positive H Urine Bilirubin Negative Urine Urobilinogen 0.2 Ur Leukocyte Esterase Moderate H Urine RBC 0 - 2 Urine WBC 10 - 15 Ur Epithelial Cells 1 - 3 Urine Bacteria Many Assessment & Plan - Assessment and Plan (Free Text) Assessment: A 77 year old female who came in to the ER due to right under the breast sharp chest pain, radiating to left side with mild shortness of breath.She also had nausea but no vomiting. Claimed to have shortness of breath climbing 2 flights of stairs. Walks with walker. History of coronary artery disease with 1 stent 20 years ago , pulmonary embolism on Eliquis, Deep vein thrombosis (LLE), emphysema, COPD, UTI, anemia,diverticulitis, arthritis, hypertension, hyper lipidemia, colectomy, right shoulder tumor with removal,tonsillectomy, former smoker 2.5 packs for 40 years quit 22 years ago. Had recently had a cardiac catheterization at [facility] access via the left radial and patient stated that stent is patent. Echo was also done but results were not available.Follows up with Dr. Bueno in [facility]. no further work up as it was just done at [facility]. Troponin negative x 2 (0.1 and 0.2). EKG - no ischemia, normal sinus rhythm, Atypical chest pain,rule out acute coronary syndrome. Positive for urinary tract infection. Plan: No distress, chest discomfort r Positive for urinary tract infection Started on antibiotics Heart rate controlled Blood pressure controlled So far, Troponin negative x 2 Will check one more set of troponin EKG no evidence of ischemia Check TSH and HbgA1C, lipid profile On Eliquis 5 mg daily,ASA 81 mg daily, coreg 6.25 mg BID,Lasix 20 mg daily Cozaar 25 mg daily Continue Eliquis for history of PE/DVT Continue current treatment Continue current medications Will start low dose Lasix for chronic leg edema Chart reviewed Will follow up Plan and treatment discussed with Dr. Bragg Thank you Dr. Contreras for the opportunity of taking care of Ms. Bhumi Rivas - Date & Time Date: 06/01/18 Time: 06:15
[2018-06-01 08:23] LABS: IRON 55 ug/dL (45-180)
[2018-06-01 08:29] LABS: ALBUMIN 3.6 g/dL (3.0-4.8); ALT/SGPT 25 U/L (7-56); AST/SGOT 31 U/L (14-36); BLOOD UREA NITROGEN 23 mg/dL (7-21); CALCIUM 8.8 mg/dL (8.4-10.5); GFR NON-AFRICAN AMERICAN 53
[2018-06-01 08:33] LABS: % IRON SATURATION 21 % (20-55); TOTAL IRON BINDING CAPACITY 267 ug/dL (265-497)
--- NOTE | 2018-06-01 10:26 | RAD ---
Date of service: 05/31/2018 HISTORY: Chest pain. COMPARISON: 02/15/2015. FINDINGS: LUNGS: No active pulmonary disease. PLEURA: No significant pleural effusion identified, no pneumothorax apparent. CARDIOVASCULAR: Atherosclerotic calcifications identified primarily aortic arch. No radiographic findings to suggest acute or significant cardiovascular disease. OSSEOUS STRUCTURES: No significant abnormalities. VISUALIZED UPPER ABDOMEN: Normal. OTHER FINDINGS: None. IMPRESSION: No active disease. No significant interval change compared to the prior examination(s).
--- NOTE | 2018-06-01 11:54 | CARD ---
APPROVED REPORT Date of service: 05/31/2018 EKG Measurement Heart [id number] <Conclusion> Sinus rhythm with premature atrial complexes Left axis deviation Left bundle branch block Abnormal ECG
[2018-06-01 12:33] LABS: TRANSFERRIN 202.86 mg/dL (206-381)
--- NOTE | 2018-06-01 12:38 | CARD ---
APPROVED REPORT Date of service: 06/01/2018 EKG Measurement Heart [id number] <Conclusion> Sinus rhythm with premature supraventricular complexes Left axis deviation Left bundle branch block Abnormal ECG
--- NOTE | 2018-06-01 16:08 | US ---
Date of service: 06/01/2018 HISTORY: Abdominal pain COMPARISON: 03/04/2013 TECHNIQUE: Sonographic evaluation of the abdomen. FINDINGS: LIVER: Measures 14.6 cm. Hepatopedal blood flow. Fatty infiltration manifest ultrasonographically as increased echogenicity of the liver parenchyma. No mass. No intrahepatic bile duct dilatation. GALLBLADDER: Cholelithiasis. Negative study for gallbladder wall thickening, pericholecystic fluid, sonographic Dior's sign. COMMON BILE DUCT: Measures 3.5 mm. No stones. No dilatation. PANCREAS: Unremarkable as visualized. No mass. No ductal dilatation. RIGHT KIDNEY: Measures 5.8 x 10.0cm. Normal echogenicity. No calculus, mass, or hydronephrosis. LEFT KIDNEY: Measures 4.9 x 10.1cm. Normal echogenicity. No calculus, mass, or hydronephrosis. SPLEEN: Normal in size and contour. No mass. AORTA: No aneurysmal dilatation. IVC: Unremarkable. OTHER FINDINGS: None. IMPRESSION: Cholelithiasis. No sonographic evidence of acute cholecystitis.
[2018-06-02 07:03] VITALS: O2SAT 97
[2018-06-02 07:11] LABS: GRAN # 0.85 (1.4-6.5); GRAN % 28.2 % (50.0-68.0); LYMPH # 1.8 (1.2-3.4); LYMPH % 59.9 % (22.0-35.0); MEAN CELL VOLUME 99.4 fl (80.0-105.0); MEAN CORPUSCULAR HEMOGLOBIN 29.9 pg (25.0-35.0); MEAN PLATELET VOLUME 10.9 fl (7.0-11.0); MONO # 0.4 (0.1-0.6); MONO % 11.9 % (1.0-6.0); RBC 3.35 10^6/uL (3.5-6.1); RED CELL DISTRIBUTION WIDTH 13.9 % (11.5-14.5)
[2018-06-02 07:32] LABS: ALB/GLOB RATIO 1.1 (1.1-1.8); ALBUMIN 3.5 g/dL (3.0-4.8); ALT/SGPT 24 U/L (7-56); AST/SGOT 22 U/L (14-36); BLOOD UREA NITROGEN 19 mg/dL (7-21); CALCIUM 8.8 mg/dL (8.4-10.5); GFR NON-AFRICAN AMERICAN > 60
--- NOTE | 2018-06-02 07:46 | CP.PCM.PN ---
Subjective - Date & Time of Evaluation Date of Evaluation: 06/02/18 Time of Evaluation: 06:30 - Subjective Subjective: Awake, alert, no distress, denies chest pain Reason for consultation and follow up: Cardiac evaluation of sharp chest pain right under the breast radiating to left side with mild shortness of breath.History of coronary artery disease with stent 20 years ago, pulmonary embolism on Eliquis, Deep vein thrombosis (LLE) Seen and examined by me and Dr. Bragg Objective - Vital Signs/Intake and Output Vital Signs (last 24 hours): Temp Pulse Resp BP Pulse Ox 98.1 F 64 20 118/77 97 06/02/18 06:00 06/02/18 06:00 06/02/18 06:00 06/02/18 06:00 06/02/18 06:00 Intake and Output: 06/02/18 06/02/18 06:59 18:59 Intake Total 480 Balance 480 - Medications Medications: Current Medications Albuterol/Ipratropium (Duoneb 3 Mg/0.5 Mg (3 Ml) Ud) 3 ml IH Q6H PRN PRN Reason: Shortness of Breath Apixaban (Eliquis) 5 mg PO BID [facility]; Protocol Last Admin: 06/01/18 17:14 Dose: 5 mg Aspirin (Aspirin Chewable) 81 mg PO DAILY [facility] Last Admin: 06/01/18 17:14 Dose: 81 mg Atorvastatin Calcium (Lipitor) 20 mg PO HS [facility] Last Admin: 06/01/18 21:49 Dose: 20 mg Carvedilol (Coreg) 6.25 mg PO BID [facility] Last Admin: 06/01/18 17:14 Dose: 6.25 mg Famotidine (Pepcid) 20 mg PO 1000,2200 [facility] Last Admin: 06/01/18 21:49 Dose: 20 mg Furosemide (Lasix) 20 mg PO DAILY [facility] Last Admin: 06/01/18 17:15 Dose: 20 mg Ceftriaxone Sodium (Rocephin 1 Gram Ivpb) 1 gm in 100 mls @ 100 mls/hr IVPB DAILY [facility]; Protocol Losartan Potassium (Cozaar) 25 mg PO DAILY [facility] Last Admin: 06/01/18 17:14 Dose: 25 mg Ranolazine [Ranexa] (500 Mg (Home Med)) 500 mg PO DAILY [facility] Last Admin: 06/01/18 17:19 Dose: Not Given - Labs Labs: 06/02/18 07:00 06/02/18 07:00 PT 19.7 SECONDS (9.4-12.5) H 05/31/18 22:04 INR 1.71 05/31/18 22:04 APTT 32.7 Seconds (25.1-36.5) 05/31/18 22:04 - Constitutional Appears: Non-toxic, No Acute Distress - Head Exam Head Exam: NORMAL INSPECTION, NORMOCEPHALIC - Eye Exam Eye Exam: Normal appearance Pupil Exam: NORMAL ACCOMODATION - ENT Exam ENT Exam: Mucous Membranes Moist, Normal Exam - Respiratory Exam Respiratory Exam: Decreased Breath Sounds, Clear to Ausculation Bilateral, NORMAL BREATHING PATTERN - Cardiovascular Exam Cardiovascular Exam: Bradycardia, +S1, +S2 Additional comments: Telemetry NSR-Bradycardia - GI/Abdominal Exam GI & Abdominal Exam: Soft, Normal Bowel Sounds - Extremities Exam Extremities Exam: Full ROM Additional comments: 1-2+edema - Neurological Exam Neurological Exam: Alert, Awake, Oriented x3 - Psychiatric Exam Psychiatric exam: Normal Affect, Normal Mood - Skin Skin Exam: Dry, Normal Color, Warm Assessment and Plan - Assessment and Plan (Free Text) Assessment: A 77 year old female who came in to the ER due to right under the breast sharp chest pain, radiating to left side with mild shortness of breath.She also had nausea but no vomiting. Claimed to have shortness of breath climbing 2 flights of stairs. Walks with walker. History of coronary artery disease with 1 stent 20 years ago , pulmonary embolism on Eliquis, Deep vein thrombosis (LLE), emphysema, COPD, UTI, anemia,diverticulitis, arthritis, hypertension, hyperlipidemia, colectomy, right shoulder tumor with removal,tonsillectomy, former smoker 2.5 packs for 40 years quit 22 years ago. Had recently had a cardiac catheterization at [facility] access via the left radial and patient stated that stent is patent. Echo was also done but results were not available.Follows up with Dr. Bueno in [facility]. no further work up as it was just done at [facility]. Troponin negative x 3 (0.1 and 0.2 and 0.2). EKG - no ischemia, normal sinus rhythm, Atypical chest pain,rule out acute coronary syndrome. Positive for urinary tract infection.US of abdomen showed cholelithiasis, no evidence of cholecystitis. Symptoms improved. Clinically sta ble. Plan: No distress,denies chest pain Symptoms resolved, clinically stable Cardiac status stable Heart rate controlled Blood pressure controlled US of abdomen-howed cholelithiasis, no evidence of cholecystitis Positive for urinary tract infection Started on antibiotics On Eliquis 5 mg daily,ASA 81 mg daily, coreg 6.25 mg BID,Lasix 20 mg daily Cozaar 25 mg daily Continue Eliquis for history of PE/DVT Continue current treatment Continue current medications Discontinue telemetry May discharge from cardiac standpoint Chart reviewed Will follow up Plan and treatment discussed with Dr. Bragg
--- NOTE | 2018-06-02 07:55 | CP.PCM.DIS ---
<Cory Lezama - Last Filed: 06/02/18 10:08> Provider - Provider Date of Admission: 06/01/18 01:47 Attending physician: Surya Mar MD Primary care physician: Consults: Cardiology: Dr. Bragg Time Spent in preparation of Discharge (in minutes): 45 Hospital Course - Lab Results Lab Results: Most Recent Lab Values WBC 3.0 10^3/ul (4.5-11.0) L 06/02/18 07:00 RBC 3.35 10^6/uL (3.5-6.1) L 06/02/18 07:00 Hgb 10.0 g/dL (12.0-16.0) L 06/02/18 07:00 Hct 33.3 % (36.0-48.0) L 06/02/18 07:00 MCV 99.4 fl (80.0-105.0) 06/02/18 07:00 MCH 29.9 pg (25.0-35.0) 06/02/18 07:00 MCHC 30.0 g/dl (31.0-37.0) L 06/02/18 07:00 RDW 13.9 % (11.5-14.5) 06/02/18 07:00 Plt Count 110 10^3/uL (120.0-450.0) L 06/02/18 07:00 MPV 10.9 fl (7.0-11.0) 06/02/18 07:00 Gran % 28.2 % (50.0-68.0) L 06/02/18 07:00 Lymph % (Auto) 59.9 % (22.0-35.0) H 06/02/18 07:00 [place] % (Auto) 11.9 % (1.0-6.0) H 06/02/18 07:00 Eos % (Auto) 0.0 % (1.5-5.0) L 06/02/18 07:00 Baso % (Auto) 0.0 % (0.0-3.0) 06/02/18 07:00 Gran # 0.85 (1.4-6.5) L 06/02/18 07:00 Lymph # (Auto) 1.8 (1.2-3.4) 06/02/18 07:00 [place] # (Auto) 0.4 (0.1-0.6) 06/02/18 07:00 Eos # (Auto) 0.0 (0.0-0.7) 06/02/18 07:00 Baso # (Auto) 0.00 K/mm3 (0.0-2.0) 06/02/18 07:00 PT 19.7 SECONDS (9.4-12.5) H 05/31/18 22:04 INR 1.71 05/31/18 22:04 APTT 32.7 Seconds (25.1-36.5) 05/31/18 22:04 D-Dimer, Quantitative < 200 ng/mlDDU (0-243) 05/31/18 23:15 Sodium 139 mmol/L (132-148) 06/02/18 07:00 Potassium 3.8 mmol/L (3.6-5.0) 06/02/18 07:00 Chloride 103 mmol/L (98-107) 06/02/18 07:00 Carbon Dioxide 32 mmol/L (21-33) 06/02/18 07:00 Anion Gap 8 (10-20) L 06/02/18 07:00 BUN 19 mg/dL (7-21) 06/02/18 07:00 Creatinine 0.9 mg/dl (0.7-1.2) 06/02/18 07:00 Est GFR ( Amer) > 60 06/02/18 07:00 Est GFR (Non-Af Amer) > 60 06/02/18 07:00 Random Glucose 92 mg/dL (70-110) 06/02/18 07:00 Calcium 8.8 mg/dL (8.4-10.5) 06/02/18 07:00 Phosphorus 4.2 mg/dL (2.5-4.5) 06/02/18 07:00 Magnesium 1.8 mg/dL (1.7-2.2) 06/02/18 07:00 Iron 55 ug/dL (45-180) 06/01/18 07:00 TIBC 267 ug/dL (265-497) 06/01/18 07:00 % Saturation 21 % (20-55) 06/01/18 07:00 Transferrin 202.86 mg/dL (206-381) L 06/01/18 07:00 Ferritin 148.0 ng/mL 06/01/18 07:00 Total Bilirubin 0.3 mg/dL (0.2-1.3) 06/02/18 07:00 AST 22 U/L (14-36) 06/02/18 07:00 ALT 24 U/L (7-56) 06/02/18 07:00 Alkaline Phosphatase 72 U/L (38-126) 06/02/18 07:00 Lactate Dehydrogenase 513 U/L (333-699) 05/31/18 23:15 Total Creatine Kinase 49 U/L (35-230) 05/31/18 23:15 Troponin I 0.02 ng/mL 06/01/18 12:00 NT-Pro-B Natriuret Pep 663 pg/mL (0-450) H 05/31/18 23:15 Total Protein 6.9 g/dL (5.8-8.3) 06/02/18 07:00 Albumin 3.5 g/dL (3.0-4.8) 06/02/18 07:00 Globulin 3.3 gm/dL 06/02/18 07:00 Albumin/Globulin Ratio 1.1 (1.1-1.8) 06/02/18 07:00 Triglycerides 44 mg/dL (35-160) 06/01/18 07:00 Cholesterol 146 mg/dL (130-200) 06/01/18 07:00 LDL Cholesterol Direct 94 mg/dL (0-129) 06/01/18 07:00 HDL Cholesterol 39 mg/dL (29-60) 06/01/18 07:00 Free T4 1.33 ng/dL (0.78-2.19) 06/01/18 07:00 TSH 3rd Generation 1.97 mIU/mL (0.46-4.68) 06/01/18 07:00 Urine Color Yellow (YELLOW) 06/01/18 00:32 Urine Appearance Sl cloudy (CLEAR) 06/01/18 00:32 Urine pH 6.0 (4.7-8.0) 06/01/18 00:32 Ur Specific [place] 1.025 (1.005-1.035) 06/01/18 00:32 Urine Protein Trace mg/dL (<30 mg/dL) H 06/01/18 00:32 Urine Glucose (UA) Negative mg/dL (NEGATIVE) 06/01/18 00:32 Urine Ketones Trace mg/dL (NEGATIVE) H 06/01/18 00:32 Urine Blood Negative (NEGATIVE) 06/01/18: Urine Nitrate Positive (NEGATIVE) H 06/01/18 00:32 Urine Bilirubin Negative (NEGATIVE) 06/01/18 00:32 Urine Urobilinogen 0.2 E.U./dL (<1 E.U./dL) 06/01/18:32 Ur Leukocyte Esterase Moderate Tamar/uL (NEGATIVE) H 06/01/18 00:32 Urine RBC 0 - 2 /hpf (0-2) 06/01/18:32 Urine WBC 10 - 15 /hpf (0-6) 06/01/18:32 Ur Epithelial Cells 1 - 3 /hpf (0-5) 06/01/18 00:32 Urine Bacteria Many (NEG) 06/01/18 00:32 - Hospital Course Hospital Course: Upon Admission 77 yo female PMHx CAD s/p 1 stent 22 years ago, DVT LLE and b/l PE on eliquis 5mg bid, HTN, HLD, emphysema, anemia, diverticulitis, arthritis presents to [facility] with complaints of right sided chest pain and associated SOB that started on night of admission. Patient reports she was resting comfortably and started to experience 8/10 chest pain on her right side under her breast. She reported the pain radiated to her left side but had no radiation down her LUE or up her jaw. Patient reports she took Nitro which did not help and thus decided to call EMS. Patient had a similar episode of such pain 22 years ago when she was brought in and had a cath and stent placed which is why she came to the ER. She stated she ate dinner around 5pm on the night of admission and began to experience chest pain a couple hours after. She reports eating fatty food frequenty She also experienced some associated nausea with no emesis and felt like going to the bathroom. Patient recently had an angio on SundayMay 28 which was unremarkab le. She also had an Echo recently however she does not recall the results. Patient reports she can only walk 1/2 block due to arthritis and that she ambulates with a cane. She lives on the second floor of her building and is usually short of breath after climbing up two flights of stairs. She sleeps with 1 pillow at night and admits to some mild orthopnea. Hospital Course: Xray showed no active disease. EKG showed showed no significant changes since previous EKG. Troponins x 3 were negative. HR and BP were controlled. Pt was found to have (+) urine nitrate, moderate leukocyte esterase and treated with rocephin. Pt was discharged from cardiac standpoint. She was continued on her home medications Abdominal ultrasound was ordered which showed cholelithiasis with no sonographic evidence of acute cholecystitis. She was discharged with instructions to follow up with her PMD, and instructions for dietary modifications for her biliary colic Upon Discharge: Vital signs stable. No acute complaints. Pt ambulating, tolerating, no acute complaints. 12 point ROS was negative. Discharge Exam - Head Exam Head Exam: ATRAUMATIC, NORMAL INSPECTION, NORMOCEPHALIC - Eye Exam Eye Exam: EOMI, Normal appearance - ENT Exam ENT Exam: Mucous Membranes Moist, Normal Exam - Respiratory Exam Respiratory Exam: Clear to PA & Lateral, NORMAL BREATHING PATTERN - Cardiovascular Exam Cardiovascular Exam: REGULAR RHYTHM - GI/Abdominal Exam GI & Abdominal Exam: Normal Bowel Sounds, Unremarkable - Extremities Exam Extremities exam: normal inspection - Back Exam Back exam: NORMAL INSPECTION - Neurological Exam Neurological exam: Alert, Oriented x3 - Psychiatric Exam Psychiatric exam: Normal Affect, Normal Mood - Skin Skin Exam: Dry, Intact, Warm Discharge Plan - Follow Up Plan Condition: STABLE Disposition: HOME/ ROUTINE Instructions: Heart Healthy Diet, Chest Pain (DC), Urinary Tract Infection in Men (DC) Additional Instructions: Please follow up with your primary care doctor, Dr. Dasilva within 3-5 days of discharge. Please discuss with him all medical issues addressed and any new medications you may have been started on. Please see your senior lead java developer (heart doctor) within 1-2 weeks of discharge. Please discuss your admission with you hospital with him/her, Please take all your previous medications as prescribed. You were found to have gallstones. Please avoid fatty foods to avoid abdominal pain. If your symptoms return, please seek emergency medical attention immediately. Referrals: Terrence Bragg MD [Staff Provider] - <Surya Mar - Last Filed: 06/02/18 14:30> Provider - Provider Date of Admission: 06/01/18 01:47 Attending physician: Surya Mar MD Hospital Course - Lab Results Lab Results: Micro Results 06/01/18 00:32 Urine,Clean Catch Urine Culture - Preliminary Gram Negative Alfredo Most Recent Lab Values WBC 3.0 10^3/ul (4.5-11.0) L 06/02/18 07:00 RBC 3.35 10^6/uL (3.5-6.1) L 06/02/18 07:00 Hgb 10.0 g/dL (12.0-16.0) L 06/02/18 07:00 Hct 33.3 % (36.0-48.0) L 06/02/18 07:00 MCV 99.4 fl (80.0-105.0) 06/02/18 07:00 MCH 29.9 pg (25.0-35.0) 06/02/18 07:00 MCHC 30.0 g/dl (31.0-37.0) L 06/02/18 07:00 RDW 13.9 % (11.5-14.5) 06/02/18 07:00 Plt Count 110 10^3/uL (120.0-450.0) L 06/02/18 07:00 MPV 10.9 fl (7.0-11.0) 06/02/18 07:00 Gran % 28.2 % (50.0-68.0) L 06/02/18 07:00 Lymph % (Auto) 59.9 % (22.0-35.0) H 06/02/18 07:00 Caldwell % (Auto) 11.9 % (1.0-6.0) H 06/02/18 07:00 Eos % (Auto) 0.0 % (1.5-5.0) L 06/02/18 07:00 Baso % (Auto) 0.0 % (0.0-3.0) 06/02/18 07:00 Gran # 0.85 (1.4-6.5) L 06/02/18 07:00 Lymph # (Auto) 1.8 (1.2-3.4) 06/02/18 07:00 [place] # (Auto) 0.4 (0.1-0.6) 06/02/18 07:00 Eos # (Auto) 0.0 (0.0-0.7) 06/02/18 07:00 Baso # (Auto) 0.00 K/mm3 (0.0-2.0) 06/02/18 07:00 PT 19.7 SECONDS (9.4-12.5) H 05/31/18 22:04 INR 1.71 05/31/18 22:04 APTT 32.7 Seconds (25.1-36.5) 05/31/18 22:04 D-Dimer, Quantitative < 200 ng/mlDDU (0-243) 05/31/18 23:15 Sodium 139 mmol/L (132-148) 06/02/18 07:00 Potassium 3.8 mmol/L (3.6-5.0) 06/02/18 07:00 Chloride 103 mmol/L (98-107) 06/02/18 07:00 Carbon Dioxide 32 mmol/L (21-33) 06/02/18 07:00 Anion Gap 8 (10-20) L 06/02/18 07:00 BUN 19 mg/dL (7-21) 06/02/18 07:00 Creatinine 0.9 mg/dl (0.7-1.2) 06/02/18 07:00 Est GFR ( Amer) > 60 06/02/18 07:00 Est GFR (Non-Af Amer) > 60 06/02/18 07:00 Random Glucose 92 mg/dL (70-110) 06/02/18 07:00 Hemoglobin A1c 5.9 % (4.2-6.5) 06/01/18 07:00 Calcium 8.8 mg/dL (8.4-10.5) 06/02/18 07:00 Phosphorus 4.2 mg/dL (2.5-4.5) 06/02/18 07:00 Magnesium 1.8 mg/dL (1.7-2.2) 06/02/18 07:00 Iron 55 ug/dL (45-180) 06/01/18 07:00 TIBC 267 ug/dL (265-497) 06/01/18 07:00 % Saturation 21 % (20-55) 06/01/18 07:00 Transferrin 202.86 mg/dL (206-381) L 06/01/18 07:00 Ferritin 148.0 ng/mL 06/01/18 07:00 Total Bilirubin 0.3 mg/dL (0.2-1.3) 06/02/18 07:00 AST 22 U/L (14-36) 06/02/18 07:00 ALT 24 U/L (7-56) 06/02/18 07:00 Alkaline Phosphatase 72 U/L (38-126) 06/02/18 07:00 Lactate Dehydrogenase 513 U/L (333-699) 05/31/18 23:15 Total Creatine Kinase 49 U/L (35-230) 05/31/18 23:15 Troponin I 0.02 ng/mL 06/01/18 12:00 NT-Pro-B Natriuret Pep 663 pg/mL (0-450) H 05/31/18 23:15 Total Protein 6.9 g/dL (5.8-8.3) 06/02/18 07:00 Albumin 3.5 g/dL (3.0-4.8) 06/02/18 07:00 Globulin 3.3 gm/dL 06/02/18 07:00 Albumin/Globulin Ratio 1.1 (1.1-1.8) 06/02/18 07:00 Triglycerides 44 mg/dL (35-160) 06/01/18 07:00 Cholesterol 146 mg/dL (130-200) 06/01/18 07:00 LDL Cholesterol Direct 94 mg/dL (0-129) 06/01/18 07:00 HDL Cholesterol 39 mg/dL (29-60) 06/01/18 07:00 Free T4 1.33 ng/dL (0.78-2.19) 06/01/18 07:00 TSH 3rd Generation 1.97 mIU/mL (0.46-4.68) 06/01/18 07:00 Urine Color Yellow (YELLOW) 06/01/18 00:32 Urine Appearance Sl cloudy (CLEAR) 06/01/18 00:32 Urine pH 6.0 (4.7-8.0) 06/01/18 00:32 Ur Specific [place] 1.025 (1.005-1.035) 06/01/18 00:32 Urine Protein Trace mg/dL (<30 mg/dL) H 06/01/18 00:32 Urine Glucose (UA) Negative mg/dL (NEGATIVE) 06/01/18 00:32 Urine Ketones Trace mg/dL (NEGATIVE) H 06/01/18 00:32 Urine Blood Negative (NEGATIVE) 06/01/18 00:32 Urine Nitrate Positive (NEGATIVE) H 06/01/18 00:32 Urine Bilirubin Negative (NEGATIVE) 06/01/18 00:32 Urine Urobilinogen 0.2 E.U./dL (<1 E.U./dL) 06/01/18 00:32 Ur Leukocyte Esterase Moderate Tamar/uL (NEGATIVE) H 06/01/18 00:32 Urine RBC 0 - 2 /hpf (0-2) 06/01/18:32 Urine WBC 10 - 15 /hpf (0-6) 06/01/18 00:32 Ur Epithelial Cells 1 - 3 /hpf (0-5) 06/01/18 00:32 Urine Bacteria Many (NEG) 06/01/18 00:32 Attending/Attestation - Attestation I have personally seen and examined this patient.: Yes I have fully participated in the care of the patient.: Yes I have reviewed all pertinent clinical information, including history, physical exam and plan: Yes Notes (Text): 06/02/18 14:25 Attending note; Patient seen and examined with resident. Patient is alert and awake. Denies any chest pain,shortness of breath. Denies any abdominal pain, nausea, vomiting. Tolerating diet well. Patient is a 77-year-old female with PMH of CAD s/p 1 stent 22 years ago, DVT LLE and PE on eliquis 5mg bid, HTN, HLD, emphysema, anemia, diverticulitis, arthritis is admitted for right sided chest pain and associated SOB. Currently chest pain-free. EKG no acute ST-T changes. Cardiac enzymes 3 negative. Cardiology evaluation appreciated. Patient had a recent cardiac cath last sunday at [facility] is normal. Patient will be discharged home. History of recent PE; continue eliquis. Anemia; stable. Needs workup as outpatient. Abdominal ultrasound showed cholelithiasis. Patient is tolerating diet. Patient will be discharged home. Follow-up with PMD Dr. Camilo Dasilva. The diagnosis, follow-up plan discussed with patient in detail.
[2018-06-02] MEDS ORDERED: cefTRIAXone 1 gm 1 GM/100 ML BAG IVPB SCH (10:00)
[2018-06-02 12:06] VITALS: BP 111/72; PULSE 66; RESP 19; TEMP 97.9
--- NOTE | 2018-06-03 09:41 | CON ---
DATE: 06/01/2018 HISTORY OF PRESENT ILLNESS: The patient is a 77-year-old female, who has a history of coronary artery disease and stent insertion many years ago. Admitted with chest pain on the right breast and then right breast pain, which was sharp, went away and then she felt sharp pain under the left breast. She did not have any chest pain on exertion. She had cardiac catheterization at [facility] 4 days ago, Sunday and she was told that all arteries were open. Along with this chest, the patient felt also nausea and she felt like she is going to have bowel movement, but she did not have the bowel movement. The patient also had echo prior to cardiac catheterization a few days ago and she also had a stress test in 02/2018 at [facility]. The patient follows with the web weaver there. The patient's troponin is negative and EKG showed regular sinus rhythm without any acute ST-T changes. Chest x-ray is clear. IMPRESSION: The patient's chest pain is atypical, probably might be gastrointestinal in origin. The patient just had a cardiac catheterization and all the arteries are open. Right now, the patient is chest pain free, so treated symptomatically. The patient is on aspirin 81 mg daily and carvedilol 6.25 b.i.d., losartan 25 daily, Eliquis 5 mg b.i.d., furosemide 20 mg daily, atorvastatin 20 daily. The patient also received ceftriaxone 1 g IV daily. Cardiac status is stable. Does not need any further workup at present from cardiac point of view. Terrence Bragg MD
--- NOTE | 2018-06-03 09:46 | PN ---
DATE: 06/02/2018 LOCATION: The patient in room 262, bed 2. Progress note has been already dictated by Mabel Slaughter. This is an addendum to that. SUBJECTIVE: The patient was admitted with sharp chest pain, first under the right breast, then under the left lower breast. The patient has no exertional angina symptoms. The patient had cardiac catheterization at [facility] only a few days ago. According to the patient, she was told that the patient's previous stent was patent. Ultrasound of abdomen showed cholelithiasis. The patient was also treated for urinary tract infection. Now, the patient is pain free and our impression is this is noncardiac pain, especially with catheterization only 4 days ago at [facility]. So, we will continue present therapy. No further cardiac workup needed at this point. Terrence Bragg MD
== END 2018-06-02 22:24 | disposition home or self-care (01) ==
LOC: ED 22:08 → ERH 06-01 01:47 → 2RNO 06-01 03:30
PROVIDERS: ADMIT Internal Medicine; ATTEND Internal Medicine
DX: R07.89 Other chest pain (principal); N64.4 Mastodynia; N39.0 Urinary tract infection, site not specified; J43.9 Emphysema, unspecified; I10 Essential (primary) hypertension; I25.10 Atherosclerotic heart disease of native coronary artery without angina pectoris; K80.20 Calculus of gallbladder without cholecystitis without obstruction; D64.9 Anemia, unspecified; F03.90 Unspecified dementia, unspecified severity, without behavioral disturbance, psychotic disturbance, mood disturbance, and anxiety; E78.5 Hyperlipidemia, unspecified; M19.90 Unspecified osteoarthritis, unspecified site; Z95.5 Presence of coronary angioplasty implant and graft; Z87.891 Personal history of nicotine dependence; Z79.82 Long term (current) use of aspirin; Z86.711 Personal history of pulmonary embolism; Z86.718 Personal history of other venous thrombosis and embolism; Z79.01 Long term (current) use of anticoagulants
CPT/HCPCS: 36415; 71045; 76700; 80053; 80061; 81001; 82550; 82728; 83036; 83540; 83615; 83735; 83880; 84100; 84439; 84443; 84466; 84484; 85025; 85378; 85610; 85730; 87086; 87181; 93005; 96365; 96375; 99285; G0378; J0696; J3475

== ENCOUNTER 2018-07-28 13:45 | Emergency (ER) | payer MEDICARE, OTHER ==
[2018-07-28 13:46] VITALS: BMI 31.6
[2018-07-28] MEDS ORDERED: Lidocaine 5% Patch TD STA (14:28)
[2018-07-28] MEDS ORDERED: Sodium Chloride 0.9% 1,000 ML IV STA (14:29)
[2018-07-28] MEDS ORDERED: Oxycodone/Acetaminophen 5/325 mg Tab PO STA (14:30)
[2018-07-28] MEDS ORDERED: TDAP Vaccine 0.5 mL Syr IM ONE (14:31)
--- NOTE | 2018-07-28 15:07 | RAD ---
HISTORY: fall COMPARISON: Chest x-ray performed 05/31/18 TECHNIQUE: Chest, one view. FINDINGS: Examination limited by habitus. LUNGS: Hyperinflation may be seen in the setting of COPD. Subtle bibasilar atelectasis or developing infiltrates. PLEURA: No significant pleural effusion identified. No definite pneumothorax . CARDIOVASCULAR: Mild cardiomegaly. Ectatic aorta. Atherosclerotic calcifications of the aorta. OSSEOUS STRUCTURES: Degenerative changes. VISUALIZED UPPER ABDOMEN: Unremarkable. OTHER FINDINGS: None. IMPRESSION: Hyperinflation may be seen in the setting of COPD. Subtle bibasilar atelectasis or developing infiltrates. Mild cardiomegaly. Ectatic aorta. Atherosclerotic calcifications.
--- NOTE | 2018-07-28 15:08 | ED PDOC ---
Arrival/HPI - General Chief Complaint: Abnormal Skin Integrity Time Seen by Provider: 07/28/18 13:48 Historian: Patient - History of Present Illness Narrative History of Present Illness (Text): 07/28/18 14:25 77 year old female whose past medical history includes 1 cardiac stent, PE/DVT on Eliquis, who presents to the emergency department for evaluation of cut on scalp status post losing balance and falling backwards at approximately 06:00 this morning at home. Patient reports she went to the bathroom using her cane and when she was done using the bathroom and stood up, she lost her balance and fell. Patient states she was using her cane when she slipped and fell the second time at home again in her hallway prior to arrival. Patient notes some bleeding to cut and says she put ice on it, and the bleeding soon stopped. Patient lives with her daughter on second floor. Patient notes nausea, headache, back pain, and chronic hip pain. Patient reports back pain as 10/10. Patient denies dizziness before fall, and notes she is unsure if she was dizzy after the fall. Patient denies neck pain. Patient states her last Tetanus shot was approximately 5 years ago. PMD: Camilo Loyd Time/Duration: Other (Pt states she first fell around 06:00 this morning, and one more time prior to arrival) Symptom Onset: Sudden Symptom Course: Unchanged Severity Level: 10 (Pt describes back pain as 10/10) Context: Home Past Medical History - Provider Review Nursing Documentation Reviewed: Yes - Infectious Disease Hx of Infectious Diseases: None - Tetanus Immunization Tetanus Immunization: Unknown - Cardiac Hx Cardiac Disorders: Yes Hx Hypertension: Yes Other/Comment: 1 stent 20yrs ago - Pulmonary Hx Respiratory Disorders: Yes Hx Chronic Obstructive Pulmonary Disease (COPD): Yes Hx Emphysema: Yes - Neurological Hx Neurological Disorder: No - HEENT Hx HEENT Disorder: Yes Hx Cataracts: Yes - Renal Hx Renal Disorder: No - Endocrine/Metabolic Hx Endocrine Disorders: No - Hematological/Oncological Hx Blood Disorders: Yes Hx Anemia: Yes - Integumentary Hx Dermatological Disorder: No - Musculoskeletal/Rheumatological Hx Musculoskeletal Disorders: Yes Hx Arthritis: Yes Hx Back Pain: Yes - Gastrointestinal Hx Gastrointestinal Disorders: Yes (COLITIS,GASTROENTERITIS) - Genitourinary/Gynecological Hx Genitourinary Disorders: Yes Hx Urinary Tract Infection: Yes - Psychiatric Hx Psychophysiologic Disorder: No Hx Emotional Abuse: No Hx Physical Abuse: No Hx Substance Use: No - Past Surgical History Past Surgical History: No Previous - Surgical History Hx Coronary Stent: Yes Other/Comment: COLON RESECTION - Anesthesia Hx Anesthesia: Yes Hx Anesthesia Reactions: No Hx Malignant Hyperthermia: No - Suicidal Assessment Feels Threatened In Home Enviroment: No Family/Social History - Physician Review Nursing Documentation Reviewed: Yes Family/Social History: No Known Family HX Smoking Status: Former Smoker Hx Alcohol Use: No Hx Substance Use: No Hx Substance Use Treatment: No Allergies/Home Meds Allergies/Adverse Reactions: Allergies No Known Allergies Allergy (Verified 07/28/18 14:04) Home Medications: Home Meds Medication Instructions Recorded Confirmed Atorvastatin Calcium [Lipitor] 20 mg PO DAILY 03/11/13 07/28/18 Carvedilol [Coreg] 6.25 mg PO BID 02/15/15 07/28/18 Furosemide [Lasix] 20 mg PO DAILY 02/15/15 07/28/18 Omeprazole Magnesium [Prilosec Otc] 20 mg PO BID 06/01/18 07/28/18 Ranolazine [Ranexa] 500 mg PO DAILY 06/01/18 07/28/18 Review of Systems - Physician Review All systems were reviewed & negative as marked: Yes - Review of Systems Gastrointestinal: Nausea (Pt notes nausea). absent: Normal Musculoskeletal: Back Pain (Pt notes back pain), Other (Pt notes chronic hip pain). absent: Normal, Neck Pain (Pt denies neck pain ) Skin: Laceration (Pt notes laceration to back of head, status post losing balance and falling this morning in bathroom). absent: Normal Neurological: Headache (Pt notes headache). absent: Normal, Dizziness (Pt denies dizziness before fall, and says she is unsure if she was dizzy after fall) Physical Exam Vital Signs Reviewed: Yes Vital Signs Temp Pulse Resp BP Pulse Ox 07/28/18 14:38 98.1 F 75 16 136/73 95 Temperature: Afebrile Blood Pressure: Normal Pulse: Regular Respiratory Rate: Normal Appearance: Positive for: Well-Appearing, Non-Toxic Pain Distress: Mild Mental Status: Positive for: Alert and Oriented X 3 - Systems Exam Head: Present: Normocephalic Pupils: Present: PERRL Extroacular Muscles: Present: EOMI Conjunctiva: Present: Normal Mouth: Present: Moist Mucous Membranes Neck: Present: Normal Range of Motion (Full ROM of neck ) Respiratory/Chest: Present: Clear to Auscultation, Good Air Exchange. No: Respiratory Distress, Accessory Muscle Use Cardiovascular: Present: Regular Rate and Rhythm, Normal S1, S2. No: Murmurs Abdomen: No: Tenderness, Distention, Peritoneal Signs Back: Present: Normal Inspection Upper Extremity: Present: Normal Inspection. No: Cyanosis, Edema Lower Extremity: Present: Normal Inspection. No: Edema Neurological: Present: GCS=15, CN II-XII Intact, Speech Normal, Motor Func Grossly Intact (5/5 motor strength ), Normal Sensory Function, Normal Cerebellar Funct (normal finger to nose) Skin: Present: Warm, Normal Color. No: Rashes Psychiatric: Present: Alert, Oriented x 3, Normal Insight, Normal Concentration Medical Decision Making ED Course and Treatment: 07/28/18 14:25 Impression: 77 year old female who presents to the emergency department for evaluation of cut on scalp status post losing balance and falling backwards at approximately 06:00 this morning at home. Differential Diagnosis included but are not limited to: Plan: -- Labs -- CT of cervical spine w/o contrast -- CT of head w/o contrast -- CT of lumbar spine w/o contrast -- EKG -- X-ray of chest -- Boostrix Vaccine Inj -- Lidoderm -- Percocet -- IV fluids -- Zofran Inj -- Urinalysis -- Reassess and disposition Prior Visits: Notes and results from previous visits were reviewed. Patient was last seen in the emergency department on 06/01/18 reporting developing pain under the R breast radiating to the L breast. Patient was hospitalized for observation in remote telemetry in stable condition with diagnosis of chest pain and urinary tract infection. Progress Notes: - Lab Interpretations Lab Results: 07/28/18 15:00 07/28/18 15:00 Lab Results 07/28/18 15:00: Sodium 138, Potassium 4.0, Chloride 101, Carbon Dioxide 30, Anion Gap 12, BUN 23 H, Creatinine 0.9, Est GFR ( Amer) > 60, Est GFR (Non-Af Amer) > 60, Random Glucose 98, Calcium 9.0, Magnesium 1.6 L, Total Bilirubin 0.6, AST 28, ALT 21, Alkaline Phosphatase 101, Total Protein 8.1, Albumin 4.2, Globulin 3.9, Albumin/Globulin Ratio 1.1 07/28/18 15:00: WBC 3.6 L, RBC 3.60, Hgb 11.0 L, Hct 35.8 L, MCV 99.4, MCH 30.6, MCHC 30.7 L, RDW 14.2, Plt Count 116 L, MPV 10.4, Gran % 61.8, Lymph % (Auto) 31.2, [place] % (Auto) 7.0 H, Eos % (Auto) 0.0 L, Baso % (Auto) 0.0, Gran # 2.20, Lymph # (Auto) 1.1 L, [place] # (Auto) 0.3, Eos # (Auto) 0.0, Baso # (Auto) 0.00 - RAD Interpretation Narrative RAD Interpretations (Text): X-ray of chest reviewed by radiologist, shows: Dictator : Rachele Bates MD Report Date : 07/28/2018 15:03:17 IMPRESSION: Hyperinflation may be seen in the setting of COPD. Subtle bibasilar atelectasis or developing infiltrates. Mild cardiomegaly. Ectatic aorta. Atherosclerotic calcifications. CT of lumbar reviewed by radiologist, shows: Dictator : Rachele Bates MD Report Date : 07/28/2018 16:06:00 Impression: No acute fracture or subluxation identified. Osseous demineralization. Extensive multilevel degenerative changes of the spine. Scoliosis. 8 mm anterolisthesis of L4 on L5. CT of head reviewed by radiologist, shows: Dictator : Rachele Bates MD Report Date : 07/28/2018 15:41:42 IMPRESSION: Generalized atrophy. Nonspecific white matter changes. CT of cervical spine reviewed by radiologist, shows: Dictator : Rachele Bates MD Report Date : 07/28/2018 15:54:44 Impression: Straightening of the normal cervical lordosis may be related to muscle spasm or positioning. Diffuse osseous demineralization limits evaluation for acute fracture lines. No evidence of acute fracture or subluxation. Multilevel degenerative changes of the spine. Mild curvature of the cervical spine convex to the right. 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 Rate : 72 BPM Rhythm : NSR Interpretation : LBBB. No ST elevations/depressions. Interpreted by ED Physician: Yes Type: 12 lead EKG - Medication Orders Current Medication Orders: Sodium Chloride (Sodium Chloride 0.9%) 1,000 mls @ 999 mls/hr IV .Q1H1M STA Stop: 07/28/18 15:29 Last Admin: 07/28/18 14:54 Dose: 999 mls/hr eMAR Start Stop Document 07/28/18 14:54 ALICIA (Rec: 07/28/18 14:54 ALICIA [facility] [id number]) Intravenous Solution Start Date 07/28/18 Start Time 14:54 End Date 07/28/18 End time 15:54 Total Infusion Time 60 Discontinued Medications Lidocaine (Lidoderm) 1 ea TD DAILY STA Stop: 07/28/18 14:29 Last Admin: 07/28/18 14:54 Dose: 1 ea MAR Transdermal Patch Site Document 07/28/18 14:54 ALICIA (Rec: 07/28/18 14:55 ALICIA [facility] [id number]) Transdermal Patch Site Transdermal Patch Site Right Lower Back Ondansetron HCl (Zofran Inj) 4 mg IVP STAT STA Stop: 07/28/18 14:29 Last Admin: 07/28/18 14:53 Dose: 4 mg IVP Administration Document 07/28/18 14:53 ALICIA (Rec: 07/28/18 14:53 ALICIA [facility] [id number] Charges for Administration # of IVP Administrations 1 Oxycodone/Acetaminophen (Percocet 5/325 Mg Tab) 1 tab PO STAT STA Stop: 07/28/18 14:31 Last Admin: 07/28/18 14:52 Dose: 1 tab MAR Pain Assessment Document 07/28/18 14:52 ALICIA (Rec: 07/28/18 14:53 ALICIA [facility] [id number] Pain Reassessment Is this a pain reassessment? Yes Presence of Pain Presence of Pain Yes Pain Scale Used Protocol: PSCALES Pain Scale Used Numeric Location Pain Location Body Site Back Description Intensity of Pain at present 6 Tetanus/Reduced Diphtheria/Acell Pertussis (Boostrix Vaccine Inj) 0.5 ml IM .ONCE ONE Stop: 07/28/18 14:32 Last Admin: 07/28/18 14:55 Dose: 0.5 ml Immunization Registry Document 07/28/18 14:55 ALICIA (Rec: 07/28/18 14:56 ALICIA [facility] [id number] [facility] [place] 05/31/18 - Scribe Statement The provider has reviewed the documentation as recorded by the Scribe Yvette Lozada All medical record entries made by the Scribe were at my direction and personally dictated by me. I have reviewed the chart and agree that the record accurately reflects my personal performance of the history, physical exam, medical decision making, and the department course for this patient. I have also personally directed, reviewed, and agree with the discharge instructions and d isposition. Disposition/Present on Arrival - Present on Arrival Any Indicators Present on Arrival: No History of DVT/PE: No History of Uncontrolled Diabetes: No Urinary Catheter: No History of Decub. Ulcer: No History Surgical Site Infection Following: None - Disposition Have Diagnosis and Disposition been Completed?: Yes Diagnosis: Fall, Laceration of head, Arthritis Disposition: HOME/ ROUTINE Disposition Time: 17:09 Patient Plan: Discharge Patient Problems: Current Active Problems Problem Status Onset Fall Acute Laceration of head Acute Arthritis Acute Condition: IMPROVED Discharge Instructions (ExitCare): Preventing Falls in the Older Adult, Osteoarthritis (DC) Print Language: HUNGARIAN Additional Instructions: All medical record entries made by the Scribe were at my direction and personally dictated by me. I have reviewed the chart and agree that the record accurately reflects my personal performance of the history, physical exam, medical decision making, and the department course for this patient. I have also personally directed, reviewed, and agree with the discharge instructions and disposition. Please follow up with your PCP in 1-2 days Referrals: Mikayla Gamez MD [Medical Doctor] - Follow up with primary [facility] [place] - Follow up with primary Forms: [employer] (Turkmen)
[2018-07-28 15:13] LABS: GRAN # 2.2 (1.4-6.5); GRAN % 61.8 % (50.0-68.0); LYMPH # 1.1 (1.2-3.4); LYMPH % 31.2 % (22.0-35.0); MEAN CELL VOLUME 99.4 fl (80.0-105.0); MEAN CORPUSCULAR HEMOGLOBIN 30.6 pg (25.0-35.0); MEAN CORPUSCULAR HGB CONC 30.7 g/dl (31.0-37.0); MEAN PLATELET VOLUME 10.4 fl (7.0-11.0); MONO # 0.3 (0.1-0.6); RBC 3.6 10^6/uL (3.5-6.1); RED CELL DISTRIBUTION WIDTH 14.2 % (11.5-14.5); WHITE BLOOD COUNT 3.6 10^3/uL (4.5-11.0)
[2018-07-28 15:36] LABS: ALB/GLOB RATIO 1.1 (1.1-1.8); ALBUMIN 4.2 g/dL (3.0-4.8); ALT/SGPT 21 U/L (7-56); AST/SGOT 28 U/L (14-36); BLOOD UREA NITROGEN 23 mg/dL (7-21); GFR NON-AFRICAN AMERICAN > 60
--- NOTE | 2018-07-28 15:45 | CT ---
Date of service: 07/28/2018 PROCEDURE: CT HEAD WITHOUT CONTRAST. HISTORY: headache COMPARISON: None available. TECHNIQUE: Axial computed tomography images were obtained through the head/brain without intravenous contrast. Radiation dose: Total exam DLP = 850.95 mGy-cm. This CT exam was performed using one or more of the following dose reduction techniques: Automated exposure control, adjustment of the mA and/or kV according to patient size, and/or use of iterative reconstruction technique. FINDINGS: HEMORRHAGE: No intracranial hemorrhage. BRAIN: Diffuse atrophy with prominence of the ventricles and sulci noted. No mass effect or edema. Intracranial atherosclerosis. Scattered periventricular and subcortical white matter hypodensities, which are nonspecific, but often seen with chronic microvascular ischemic disease. Please note that MRI with diffusion imaging is more sensitive in the detection of acute ischemic event. VENTRICLES: No hydrocephalus. CALVARIUM: Unremarkable. PARANASAL SINUSES: Unremarkable as visualized. No significant inflammatory changes. MASTOID AIR CELLS: Unremarkable as visualized. No inflammatory changes. OTHER FINDINGS: None. IMPRESSION: Generalized atrophy. Nonspecific white matter changes.
--- NOTE | 2018-07-28 15:58 | CT ---
Date of service: 07/28/2018 CT cervical spine without IV contrast Indication: fall Comparison: None available. Technique: Axial computed tomography images were obtained of the cervical spine without the use of intravenous contrast. Coronal and sagittal reformatted images were created and reviewed. This CT exam was performed using 1 or more of the following dose reduction techniques: Automated exposure control, adjustment of the MAA and/or kV according to patient size, and/or use of iterative reconstruction technique. Radiation dose: Total exam DLP = 636.74 mGy-cm. Findings: Diffuse osseous demineralization. Straightening of the normal cervical lordosis may be related to muscle spasm or positioning. Mild curvature of the cervical spine convex to the right. Extensive multilevel degenerative changes including osteophyte formation, endplate sclerosis, and intervertebral disc space narrowing. Mild multilevel loss of vertebral body heights. There is no evidence of acute fracture or subluxation. The dens tip is intact. There is proper alignment of the lateral masses of C1 with the C2 vertebral body. Included portions of the thyroid gland appear unremarkable. Included portions of lung apices appear clear. Impression: Straightening of the normal cervical lordosis may be related to muscle spasm or positioning. Diffuse osseous demineralization limits evaluation for acute fracture lines. No evidence of acute fracture or subluxation. Multilevel degenerative changes of the spine. Mild curvature of the cervical spine convex to the right.
--- NOTE | 2018-07-28 16:11 | CT ---
Date of service: 07/28/2018 CT lumbar spine without IV contrast Indication: s/p fall lower back pain Comparison: CT abdomen and pelvis with IV contrast performed 02/15/15 Technique: Noncontrast axial images of the lumbar spine were provided. Sagittal and coronal reformatted images were generated and reviewed. This CT exam was performed using 1 or more of the following dose reduction techniques: Automated exposure control, adjustment of the MAA and/or kV according to patient size, and/or use of iterative reconstruction technique. Total exam DLP: 1992.05 MGy-cm Findings: Osseous demineralization. Multilevel degenerative changes of the lumbar spine with intervertebral disc space narrowing, vacuum disc phenomenon, and osteophyte formation. Scoliosis. 8 mm anterolisthesis of L4 on L5. No acute fracture or subluxation identified. Paraspinal soft tissues appear unremarkable. Atherosclerotic calcifications of the aorta and branches. Partially imaged cardiomegaly. Limited visualization of the intra-abdominal and intrapelvic contents appear otherwise unremarkable. Impression: No acute fracture or subluxation identified. Osseous demineralization. Extensive multilevel degenerative changes of the spine. Scoliosis. 8 mm anterolisthesis of L4 on L5.
[2018-07-28 18:01] VITALS: BP 145/71; PULSE 70; RESP 18; TEMP 97.9; O2SAT 99
--- NOTE | 2018-07-29 13:31 | CARD ---
APPROVED REPORT Date of service: 07/28/2018 EKG Measurement Heart [id number] <Conclusion> Normal sinus rhythm Left axis deviation Left bundle branch block Abnormal ECG
== END 2018-07-28 18:10 | disposition home or self-care (01) ==
LOC: ED 13:45
DX: S01.91XA Laceration without foreign body of unspecified part of head, initial encounter (principal); W01.0XXA Fall on same level from slipping, tripping and stumbling without subsequent striking against object, initial encounter; Y92.002 Bathroom of unspecified non-institutional (private) residence as the place of occurrence of the external cause; M19.90 Unspecified osteoarthritis, unspecified site; I10 Essential (primary) hypertension; Z79.01 Long term (current) use of anticoagulants; Z87.891 Personal history of nicotine dependence; Z23 Encounter for immunization
CPT/HCPCS: 70450; 71045; 72125; 72131; 80053; 83735; 85025; 90471; 90715; 93005; 96361; 96374; 99283; J2405; J7030

== ENCOUNTER 2018-08-01 10:59 | Emergency (ER) | payer MEDICARE, OTHER ==
[2018-08-01 10:59] VITALS: BMI 31.6
--- NOTE | 2018-08-01 11:07 | ED PDOC ---
Arrival/HPI - General Historian: Patient - History of Present Illness Narrative History of Present Illness (Text): 08/01/18 11:20 [id number] presents to ED for staple (1) removal from lac repair 4 days ago. Pt denies any pain in the area, bleeding, fevers chillins night sweats, nausea, vomiting. Pt reports the head pain has resolved completely since fall. Pt follows up regularly with PMd and take home meds as prescribed. 08/01/18 11:22 Time/Duration: < week Symptom Course: Resolved Quality: Aching (resolved) Activities at Onset: Light <Eduardo Mo - Last Filed: 08/01/18 11:33> <Joseluis Castaneda - Last Filed: 08/02/18 15:55> - General Chief Complaint: Suture/Staple Removal Time Seen by Provider: 08/01/18 11:06 Past Medical History - Provider Review Nursing Documentation Reviewed: Yes - Infectious Disease Hx of Infectious Diseases: None - Tetanus Immunization Tetanus Immunization: Unknown - Cardiac Hx Cardiac Disorders: Yes Hx Hypertension: Yes Other/Comment: 1 stent 20yrs ago - Pulmonary Hx Respiratory Disorders: Yes Hx Chronic Obstructive Pulmonary Disease (COPD): Yes Hx Emphysema: Yes - Neurological Hx Neurological Disorder: No - HEENT Hx HEENT Disorder: Yes Hx Cataracts: Yes - Renal Hx Renal Disorder: No - Endocrine/Metabolic Hx Endocrine Disorders: No - Hematological/Oncological Hx Blood Disorders: Yes Hx Anemia: Yes - Integumentary Hx Dermatological Disorder: No - Musculoskeletal/Rheumatological Hx Musculoskeletal Disorders: Yes Hx Arthritis: Yes Hx Back Pain: Yes - Gastrointestinal Hx Gastrointestinal Disorders: Yes (COLITIS,GASTROENTERITIS) - Genitourinary/Gynecological Hx Genitourinary Disorders: Yes Hx Urinary Tract Infection: Yes - Psychiatric Hx Psychophysiologic Disorder: No Hx Emotional Abuse: No Hx Physical Abuse: No Hx Substance Use: No - Past Surgical History Past Surgical History: No Previous - Surgical History Hx Coronary Stent: Yes Other/Comment: COLON RESECTION - Anesthesia Hx Anesthesia: Yes Hx Anesthesia Reactions: No Hx Malignant Hyperthermia: No - Suicidal Assessment Feels Threatened In Home Enviroment: No <Eduardo Mo - Last Filed: 08/01/18 11:33> Family/Social History - Physician Review Nursing Documentation Reviewed: Yes Family/Social History: Unknown Family HX Smoking Status: Former Smoker Hx Alcohol Use: No Hx Substance Use: No Hx Substance Use Treatment: No <Eduardo Mo - Last Filed: 08/01/18 11:33> Allergies/Home Meds <Eduardo Mo - Last Filed: 08/01/18 11:33> <Joseluis Castaneda - Last Filed: 08/02/18 15:55> Allergies/Adverse Reactions: Allergies No Known Allergies Allergy (Verified 07/28/18 14:04) Home Medications: Home Meds Medication Instructions Recorded Confirmed RX: Atorvastatin Calcium [Lipitor] 20 mg PO DAILY 03/11/13 07/28/18 RX: Carvedilol [Coreg] 6.25 mg PO BID 02/15/15 07/28/18 RX: Furosemide [Lasix] 20 mg PO DAILY 02/15/15 07/28/18 RX: Omeprazole Magnesium [Prilosec 20 mg PO BID 06/01/18 07/28/18 Otc] RX: Ranolazine [Ranexa] 500 mg PO DAILY 06/01/18 07/28/18 Review of Systems - Physician Review All systems were reviewed & negative as marked: Yes - Review of Systems Constitutional: absent: Fevers Eyes: absent: Vision Changes Respiratory: absent: SOB, Cough Cardiovascular: absent: Chest Pain, Syncope Gastrointestinal: absent: Nausea, Vomiting Musculoskeletal: Other (occipital head pain resolved) Neurological: absent: Headache Psychiatric: Normal <Eduardo Mo - Last Filed: 08/01/18 11:33> Physical Exam Temperature: Afebrile Blood Pressure: Normal Pulse: Regular Respiratory Rate: Normal Appearance: Positive for: Well-Appearing, Non-Toxic Pain Distress: None Mental Status: Positive for: Alert and Oriented X 3 - Systems Exam Head: Present: Laceration (1 inch healing approximated wound, non erythematous, non bleeding). No: Tenderness, Swelling, Ecchymosis Pupils: Present: PERRL Extroacular Muscles: Present: EOMI. No: Gaze Palsy Conjunctiva: Present: Normal Nose (External): Present: Atraumatic Respiratory/Chest: Present: Clear to Auscultation. No: Wheezes, Rhonchi Cardiovascular: Present: Regular Rate and Rhythm, Normal S1, S2 Neurological: Present: CN II-XII Intact, Speech Normal Skin: Present: Warm, Dry. No: Rashes Psychiatric: Present: Alert, Oriented x 3 <Eduardo Mo - Last Filed: 08/01/18 11:33> Vital Signs Temp Pulse Resp BP Pulse Ox 08/01/18 11:41 86 18 124/76 99 08/01/18 10:59 98.3 F 72 18 118/57 L 97 <Joseluis Castaneda - Last Filed: 08/02/18 15:55> Medical Decision Making ED Course and Treatment: 08/01/18 11:27 1 staple on occiput, left of midline cleaned with betadine prep pad removed w/ staple removal kit no bleeding post removal nonerythematous <Eduardo Mo - Last Filed: 08/01/18 11:33> - PA / GATE WATCH / Resident Statement / has examined the patient and agrees with the treatment plan. - Scribe Statement 77 yr old F p/w staple removal. Had tetanus last visit. Posterior scalp staple site c/d/i, no drainage or erythema or crepitus or signs of infection. Staple removed w/ good hemostasis. Clear for d/c home. <Joseluis Castaneda - Last Filed: 08/02/18 15:55> Disposition/Present on Arrival - Present on Arrival Any Indicators Present on Arrival: No History of DVT/PE: No History of Uncontrolled Diabetes: No Urinary Catheter: No History Surgical Site Infection Following: None - Disposition Have Diagnosis and Disposition been Completed?: Yes Disposition Time: 11:29 Patient Plan: Discharge <Eduardo Mo - Last Filed: 08/01/18 11:33> <Joseluis Castaneda - Last Filed: 08/02/18 15:55> - Disposition Diagnosis: Removal of staple Disposition: HOME/ ROUTINE Condition: GOOD Discharge Instructions (ExitCare): How to Prevent Surgical Site Infections, Staple Removal Additional Instructions: OZZIE LEDESMA, thank you for letting us take care of you today. Your provider was Joseluis Castaneda and you were treated for STAPLE REMOVAL. The emergency medical care you received today was directed at your acute symptoms. If you were prescribed any medication, please fill it and take as directed. It may take several days for your symptoms to resolve. Return to the Emergency Department if your symptoms worsen, do not improve, or if you have any other problems. Please contact your doctor or call one of the physicians/clinics you have been referred to that are listed on the Patient Visit Information form that is included in your discharge packet. Bring any paperwork you were given at discharge with you along with any medications you are taking to your follow up visit. Our treatment cannot replace ongoing medical care by a primary care provider outside of the emergency department. Thank you for allowing the [facility] team to be part of your care today. If you had an X-Ray or CT scan: A Radiologist will review the ED reading if any change in treatment is needed we will contact you. If you had a blood, urine, or wound culture: It will take several days for the results, if any change in treatment is needed we will contact you. If you had an STI test: It will take 48 hours for the results. Please call after 1 week if you have not heard back. Referrals: Camilo Dasilva MD [Primary Care Provider] - Follow up with primary Forms: [email or web address] (Telugu)
[2018-08-01 11:23] VITALS: RESP 18; TEMP 98.3
[2018-08-01 11:41] VITALS: BP 124/76; PULSE 86; O2SAT 99
== END 2018-08-01 11:41 | disposition home or self-care (01) ==
LOC: ED 10:59
DX: Z48.02 Encounter for removal of sutures (principal)

== ENCOUNTER 2019-01-02 10:36 | Outpatient (CLI) | payer MEDICARE | END 2019-01-02 10:37 | disposition home or self-care (01) | LOC: LAB 10:36 ==